=== PATIENT | female | born 1970 | race African-American/Black ===

== ENCOUNTER 2019-02-23 20:08 | Inpatient (IN) ==
[2019-02-23] MEDS ORDERED: VANCOMYCIN INJ 1,000 MG in SODIUM CHLORIDE 0.9% 250 ML IV STA (21:36)
[2019-02-23 22:43] LABS: Basophils # 0.1 10*3/uL (0.0-0.2); Basophils % 0.8 % (0.0-0.8); Eosinophils # 0.3 10*3/uL (0.0-0.87); Hematocrit 34.8 VOL% (35.7-47.0); Hemoglobin 11.2 GM/DL (12.0-16.0); Immature Granulocytes % 0.2 %; Immature Granulocytes Absolute 0.01 #; Lymphocytes % 30.4 % (21.3-54.2); Mean Corpuscular HGB Conc 32.2 GM/DL (32-36); Mean Corpuscular Volume 95.6 FL (87-102); Mean Platelet Volume 9.7 FL (9.6-12.0); Monocytes % 5.4 % (1.7-12.7); Neutrophils % 59.2 % (38.7-73.9); Platelet Count 314 T/CUMM (130-400); Red Blood Count 3.64 MC/CUMM (3.8-5.5); Red Cell Distribution Width 13.1 % (9.3-17.3); White Blood Count 6.5 T/CUMM (4-12)
[2019-02-23 22:51] LABS: INR 0.9; PT Patient Result 9.4 SECS (9.6-12.2)
[2019-02-23 23:00] LABS: Alanine Aminotransferase 29 U/L (13-56); Albumin 3.5 G/DL (3.4-5.0); Alkaline Phosphatase 139 U/L (45-117); Aspartate Amino Transferase 26 U/L (0-37); Bilirubin,Total < 0.39 MG/DL (0.2-1.0); Blood Urea Nitrogen 25 MG/DL (7-18); Calcium 9.7 MG/DL (8.5-10.1); Glucose 155 MG/DL (74-106); Osmolality,Calculated 283.5 MOS/KG (273-304); Total Protein 8.1 G/DL (6.4-8.3)
[2019-02-23] MEDS ORDERED: fentaNYL 100 MCG/2 ML VIAL IV STA (23:49)
[2019-02-23] MEDS ORDERED: ONDANSETRON 4 MG/2 ML VIAL IV STA (23:49)
[2019-02-24] MEDS ORDERED: DEXTROSE 50% 25 GM/50 ML VIAL IV PRN (00:15)
[2019-02-24] MEDS ORDERED: ONDANSETRON 4 MG/2 ML VIAL IV PRN (00:15)
[2019-02-24] MEDS ORDERED: NICOTINE 21 MG/24 HR PATCH TRANSDERM PRN (00:15)
[2019-02-24] MEDS ORDERED: ACETAMINOPHEN 325 MG TABLET PO PRN (00:15)
[2019-02-24] MEDS ORDERED: GLUCAGON 1 MG VIAL IM PRN (00:15)
[2019-02-24] MEDS ORDERED: VANCOMYCIN INJ 1,000 MG in SODIUM CHLORIDE 0.9% 250 ML IV ONE ×2 (00:30→02:30)
[2019-02-24] MEDS: SODIUM CHLORIDE 0.9% 1,000 ML IV SCH (01:30)
[2019-02-24] MEDS ORDERED: hydrALAZINE 20 MG/1 ML VIAL IV ONE (03:02)
[2019-02-24] MEDS: MORPHINE 4 MG/1 ML VIAL IV PRN ×5 (03:20→21:19)
[2019-02-24] MEDS: PIPERACILLIN/TAZOBACTAM 3,375 MG in SODIUM CHLORIDE 0.9% 100 ML IV SCH ×3 (04:15→19:33)
[2019-02-24] MEDS ORDERED: METOPROLOL TARTRATE 5 MG/5 ML VIAL IV ONE (04:44)
[2019-02-24 06:05] LABS: Basophils % 0.6 % (0.0-0.8); Eosinophils # 0.2 10*3/uL (0.0-0.87); Eosinophils % 3.1 % (0.00-10.9); Hematocrit 34.4 VOL% (35.7-47.0); Hemoglobin 11.1 GM/DL (12.0-16.0); Immature Granulocytes % 0.6 %; Immature Granulocytes Absolute 0.04 #; Lymphocytes % 29.3 % (21.3-54.2); Mean Corpuscular HGB Conc 32.3 GM/DL (32-36); Mean Corpuscular Volume 94.5 FL (87-102); Mean Platelet Volume 9.6 FL (9.6-12.0); Monocytes % 7.2 % (1.7-12.7); Neutrophils % 59.2 % (38.7-73.9); Platelet Count 380 T/CUMM (130-400); Red Blood Count 3.64 MC/CUMM (3.8-5.5); Red Cell Distribution Width 13.1 % (9.3-17.3); White Blood Count 6.7 T/CUMM (4-12)
[2019-02-24 06:24] LABS: Albumin 3.4 G/DL (3.4-5.0); Bilirubin,Total 0.4 MG/DL (0.2-1.0); Calcium 9.8 MG/DL (8.5-10.1); Osmolality,Calculated 284.5 MOS/KG (273-304)
[2019-02-24] MEDS: INSULIN REGULAR 100 UNIT/ML SUBCUT SCH ×3 (07:20→18:07)
[2019-02-24] MEDS: POTASSIUM CHLORIDE 20 MEQ TABLET PO PRN ×3 (19:33→23:44)
[2019-02-24] MEDS: METOPROLOL TARTRATE 50 MG TABLET PO SCH (21:05)
[2019-02-25] MEDS: SODIUM CHLORIDE 0.9% 1,000 ML IV SCH ×3 (00:04→18:04)
[2019-02-25] MEDS: VANCOMYCIN INJ 1,750 MG in SODIUM CHLORIDE 0.9% 500 ML IV SCH ×2 (00:05→23:47)
[2019-02-25] MEDS: INSULIN REGULAR 100 UNIT/ML SUBCUT SCH ×4 (00:29→18:24)
[2019-02-25] MEDS: PIPERACILLIN/TAZOBACTAM 3,375 MG in SODIUM CHLORIDE 0.9% 100 ML IV SCH ×3 (04:25→21:11)
[2019-02-25] MEDS: MORPHINE 4 MG/1 ML VIAL IV PRN ×4 (04:25→21:12)
[2019-02-25] MEDS: METOPROLOL TARTRATE 50 MG TABLET PO SCH ×2 (08:34→21:12)
[2019-02-25] MEDS ORDERED: hydrALAZINE 20 MG/1 ML VIAL IV ONE (11:42)
[2019-02-25] MEDS: amLODIPine 10 MG TABLET PO SCH (11:55)
[2019-02-26] MEDS: PIPERACILLIN/TAZOBACTAM 3,375 MG in SODIUM CHLORIDE 0.9% 100 ML IV SCH ×3 (03:10→20:15)
[2019-02-26] MEDS: MORPHINE 4 MG/1 ML VIAL IV PRN ×2 (03:11→07:47)
[2019-02-26] MEDS: INSULIN REGULAR 100 UNIT/ML SUBCUT SCH ×5 (03:16→20:20)
[2019-02-26] MEDS: SODIUM CHLORIDE 0.9% 1,000 ML IV SCH ×2 (08:24→09:03)
[2019-02-26] MEDS: amLODIPine 10 MG TABLET PO SCH (08:51)
[2019-02-26] MEDS: METOPROLOL TARTRATE 50 MG TABLET PO SCH ×2 (08:52→20:18)
[2019-02-26 10:06] LABS: Calcium 9.3 MG/DL (8.5-10.1); Osmolality,Calculated 292.1 MOS/KG (273-304)
[2019-02-26] MEDS: hydrALAZINE 20 MG/1 ML VIAL IV PRN ×2 (12:20→20:18)
[2019-02-26] MEDS: hydrALAZINE 25 MG TABLET PO SCH ×2 (14:54→20:17)
[2019-02-27] MEDS: VANCOMYCIN INJ 1,750 MG in SODIUM CHLORIDE 0.9% 500 ML IV SCH (00:35)
[2019-02-27] MEDS: PIPERACILLIN/TAZOBACTAM 3,375 MG in SODIUM CHLORIDE 0.9% 100 ML IV SCH (03:33)
[2019-02-27 05:45] LABS: Calcium 8.9 MG/DL (8.5-10.1); Osmolality,Calculated 287.5 MOS/KG (273-304)
[2019-02-27 08:09] VITALS: BP 162/87
[2019-02-27 08:35] LABS: Risk Ratio 5.81
[2019-02-27] MEDS: METOPROLOL TARTRATE 50 MG TABLET PO SCH (08:51)
[2019-02-27] MEDS: hydrALAZINE 25 MG TABLET PO SCH (08:51)
[2019-02-27] MEDS: amLODIPine 10 MG TABLET PO SCH (08:51)
[2019-02-27] MEDS: INSULIN REGULAR 100 UNIT/ML SUBCUT SCH ×2 (08:52→11:34)
[2019-02-27] MEDS ORDERED: LINEZOLID 600 MG TABLET PO SCH (09:00)
[2019-02-27] MEDS ORDERED: INSULIN GLARGINE 100 UNIT/ML SUBCUT SCH ×2 (21:00)
== END 2019-02-27 11:42 | disposition home or self-care (01) | DRG 638 ==
LOC: N.ED 20:08 → N.EDINP 20:08 → SUATTDRO 02-24 00:15 → N.5E 02-24 00:49 → SUATTDRO 02-26 14:18
PROVIDERS: ADMIT Internal Medicine; ATTEND Internal Medicine

== ENCOUNTER 2019-09-14 11:35 | Inpatient (IN) ==
[2019-09-14 13:52] LABS: Basophils # 0.1 10*3/uL (0.0-0.2); Basophils % 0.6 % (0.0-0.8); Eosinophils # 0.3 10*3/uL (0.0-0.87); Eosinophils % 4.4 % (0.00-10.9); Hematocrit 33.2 VOL% (35.7-47.0); Hemoglobin 10.7 GM/DL (12.0-16.0); Immature Granulocytes % 0.3 %; Immature Granulocytes Absolute 0.02 #; Lymphocytes # 1.9 10*3/uL (1.4-4.0); Lymphocytes % 24.4 % (21.3-54.2); Mean Corpuscular HGB Conc 32.2 GM/DL (32-36); Mean Platelet Volume 9.9 FL (9.6-12.0); Monocytes % 6.9 % (1.7-12.7); Neutrophils % 63.4 % (38.7-73.9); Platelet Count 414 T/CUMM (130-400); Red Blood Count 3.65 MC/CUMM (3.8-5.5); Red Cell Distribution Width 13.2 % (9.3-17.3); White Blood Count 7.7 T/CUMM (4-12)
[2019-09-14 14:41] LABS: Alanine Aminotransferase 23 U/L (13-56); Albumin 2.4 G/DL (3.4-5.0); Alkaline Phosphatase 222 U/L (45-117); Aspartate Amino Transferase 19 U/L (0-37); Bilirubin,Total < 0.39 MG/DL (0.2-1.0); Blood Urea Nitrogen 17 MG/DL (7-18); Calcium 9.6 MG/DL (8.5-10.1); Estimated Glom Filtration Rate 38 ML/MIN; Glucose 445 MG/DL (74-106); Osmolality,Calculated 278.9 MOS/KG (273-304); Total Protein 8.2 G/DL (6.4-8.3)
[2019-09-14] MEDS ORDERED: ACETAMINOPHEN 325 MG TABLET PO PRN (16:59)
[2019-09-14] MEDS ORDERED: GLUCAGON 1 MG VIAL IM PRN (16:59)
[2019-09-14] MEDS ORDERED: ONDANSETRON 4 MG/2 ML VIAL IV PRN (16:59)
[2019-09-14] MEDS ORDERED: DEXTROSE 50% 25 GM/50 ML VIAL IV PRN (16:59)
[2019-09-14] MEDS ORDERED: DEXTROSE 10% 250 ML BAG IV PRN (16:59)
[2019-09-14] MEDS ORDERED: TOPIRAMATE 100 MG TABLET PO PRN (17:20)
[2019-09-14] MEDS: SODIUM CHLORIDE 0.9% 1,000 ML IV SCH (18:13)
[2019-09-14] MEDS: POLYETHYLENE GLYCOL POWDER 17 GM PACK PO SCH (18:13)
[2019-09-14] MEDS: PIPERACILLIN/TAZOBACTAM 3,375 MG in SODIUM CHLORIDE 0.9% 100 ML IV SCH (18:30)
[2019-09-14] MEDS: tiZANidine 4 MG TABLET PO SCH (20:41)
[2019-09-14] MEDS: AMITRIPTYLINE 75 MG TABLET PO SCH (20:41)
[2019-09-14] MEDS: hydrALAZINE 25 MG TABLET PO SCH (20:41)
[2019-09-14] MEDS: DOCUSATE SODIUM 100 MG/10 ML UDCUP PO SCH (20:42)
[2019-09-14] MEDS: METOPROLOL TARTRATE 50 MG TABLET PO SCH (20:42)
[2019-09-14] MEDS: INSULIN REGULAR 100 UNIT/ML SUBCUT SCH (20:42)
[2019-09-14] MEDS: GABAPENTIN 400 MG CAPSULE PO SCH (20:42)
[2019-09-14] MEDS: oxyCODONE ER 20 MG TABLET PO SCH (22:03)
[2019-09-14] MEDS: ZALEPLON 5 MG CAPSULE PO PRN (22:04)
[2019-09-14] MEDS: VANCOMYCIN INJ 1,500 MG in SODIUM CHLORIDE 0.9% 500 ML IV SCH (23:50)
[2019-09-15] MEDS: PIPERACILLIN/TAZOBACTAM 3,375 MG in SODIUM CHLORIDE 0.9% 100 ML IV SCH ×3 (03:42→19:02)
[2019-09-15 04:52] LABS: Basophils # 0.1 10*3/uL (0.0-0.2); Basophils % 0.7 % (0.0-0.8); Eosinophils # 0.3 10*3/uL (0.0-0.87); Eosinophils % 3.7 % (0.00-10.9); Hematocrit 33.5 VOL% (35.7-47.0); Hemoglobin 10.5 GM/DL (12.0-16.0); Immature Granulocytes % 0.8 %; Immature Granulocytes Absolute 0.06 #; Lymphocytes % 26.3 % (21.3-54.2); Mean Corpuscular HGB Conc 31.3 GM/DL (32-36); Mean Corpuscular Volume 94.6 FL (87-102); Mean Platelet Volume 9.8 FL (9.6-12.0); Monocytes % 7.9 % (1.7-12.7); Neutrophils % 60.6 % (38.7-73.9); Platelet Count 451 T/CUMM (130-400); Red Blood Count 3.54 MC/CUMM (3.8-5.5); Red Cell Distribution Width 13.2 % (9.3-17.3); White Blood Count 7.6 T/CUMM (4-12)
[2019-09-15 05:28] LABS: Albumin 2.2 G/DL (3.4-5.0); Bilirubin,Total 0.4 MG/DL (0.2-1.0); Calcium 8.9 MG/DL (8.5-10.1); Risk Ratio 5.33; Thyroid Stimulating Hormone 0.706 uIU/ml (0.358-3.74); Total Protein 7.6 G/DL (6.4-8.3); VLDL CHOLESTEROL 51.4 MG/DL
[2019-09-15] MEDS ORDERED: LIDOCAINE 1% 20 ML VIAL ONE (08:41)
[2019-09-15] MEDS ORDERED: BUPIVACAINE MPF 0.25% 30 ML VIAL ONE (08:41)
[2019-09-15] MEDS ORDERED: propofoL 200 MG/20 ML VIAL IV ONE (09:10)
[2019-09-15] MEDS ORDERED: fentaNYL 100 MCG/2 ML VIAL ONE (09:11)
[2019-09-15] MEDS ORDERED: LIDOCAINE 2% 5 ML VIAL ONE (09:11)
[2019-09-15] MEDS ORDERED: METOPROLOL TARTRATE 5 MG/5 ML VIAL IV ONE (09:11)
[2019-09-15] MEDS ORDERED: MIDAZOLAM 2 MG/2 ML VIAL ONE (09:11)
[2019-09-15] MEDS ORDERED: ONDANSETRON 4 MG/2 ML VIAL IV PRN (09:17)
[2019-09-15] MEDS ORDERED: HYDROmorphone 2 MG/1 ML VIAL ONE (09:19)
[2019-09-15] MEDS ORDERED: ONDANSETRON 4 MG/2 ML VIAL ONE (09:19)
[2019-09-15] MEDS: HYDROmorphone 2 MG/1 ML VIAL IV PRN ×4 (09:20→10:11)
[2019-09-15] MEDS: INSULIN REGULAR 100 UNIT/ML SUBCUT SCH ×4 (09:27→21:32)
[2019-09-15] MEDS: POLYETHYLENE GLYCOL POWDER 17 GM PACK PO SCH (10:37)
[2019-09-15] MEDS: GABAPENTIN 400 MG CAPSULE PO SCH ×3 (10:37→20:48)
[2019-09-15] MEDS: ROSUVASTATIN 20 MG TABLET PO SCH (10:37)
[2019-09-15] MEDS: hydrALAZINE 25 MG TABLET PO SCH ×3 (10:37→20:47)
[2019-09-15] MEDS: DOCUSATE SODIUM 100 MG/10 ML UDCUP PO SCH ×2 (10:37→20:49)
[2019-09-15] MEDS: METOPROLOL TARTRATE 50 MG TABLET PO SCH ×2 (10:37→20:51)
[2019-09-15] MEDS: oxyCODONE ER 20 MG TABLET PO SCH ×2 (10:38→20:46)
[2019-09-15] MEDS: amLODIPine 10 MG TABLET PO SCH (10:38)
[2019-09-15] MEDS: tiZANidine 4 MG TABLET PO SCH ×3 (10:39→20:48)
[2019-09-15] MEDS ORDERED: DEXTROSE 50% 25 GM/50 ML VIAL IV PRN (12:41)
[2019-09-15] MEDS: SODIUM CHLORIDE 0.9% 1,000 ML IV SCH (16:29)
[2019-09-15] MEDS: ZALEPLON 5 MG CAPSULE PO PRN (20:46)
[2019-09-15] MEDS: AMITRIPTYLINE 75 MG TABLET PO SCH (20:48)
[2019-09-16] MEDS: INSULIN GLARGINE 100 UNIT/ML SUBCUT SCH ×2 (00:24→20:51)
[2019-09-16] MEDS: VICTOZA 1.8MG SUBCUT SCH ×2 (00:25→20:51)
[2019-09-16 01:19] LABS: Apearance,Urine CLEAR (Clear); Bilirubin,Urine Negative (Negative); Blood, Urine Negative (Negative); Glucose,Urine (UA) >=500 mg/dL (Negative); Ketones,Urine Negative (Negative); Nitrite,Urine Negative (Negative); Protein,Urine 30 MG/DL; RBC,Urine 1 /HPF (0-4); Squamous Epithelial Cell,Urine Occasional /HPF (0-10); Urine Color Yellow (Yellow); Urine Urobilinogen < 2.0 EU/DL (0.2-1.0); WBC,Urine 1 /HPF (0-6)
[2019-09-16] MEDS: SODIUM CHLORIDE 0.9% 1,000 ML IV SCH ×2 (05:00→18:47)
[2019-09-16] MEDS: PIPERACILLIN/TAZOBACTAM 3,375 MG in SODIUM CHLORIDE 0.9% 100 ML IV SCH ×3 (05:00→22:30)
[2019-09-16 05:25] LABS: Basophils % 0.5 % (0.0-0.8); Eosinophils # 0.3 10*3/uL (0.0-0.87); Eosinophils % 3.6 % (0.00-10.9); Hematocrit 32.9 VOL% (35.7-47.0); Hemoglobin 10.1 GM/DL (12.0-16.0); Immature Granulocytes % 0.6 %; Immature Granulocytes Absolute 0.05 #; Lymphocytes # 1.6 10*3/uL (1.4-4.0); Lymphocytes % 19.7 % (21.3-54.2); Mean Corpuscular HGB Conc 30.7 GM/DL (32-36); Mean Corpuscular Volume 96.2 FL (87-102); Mean Platelet Volume 9.8 FL (9.6-12.0); Monocytes % 7.6 % (1.7-12.7); Platelet Count 425 T/CUMM (130-400); Red Blood Count 3.42 MC/CUMM (3.8-5.5); Red Cell Distribution Width 13.5 % (9.3-17.3); White Blood Count 8.2 T/CUMM (4-12)
[2019-09-16 05:49] LABS: Calcium 8.7 MG/DL (8.5-10.1)
[2019-09-16] MEDS: ROSUVASTATIN 20 MG TABLET PO SCH (09:08)
[2019-09-16] MEDS: DOCUSATE SODIUM 100 MG/10 ML UDCUP PO SCH ×2 (09:08→22:12)
[2019-09-16] MEDS: amLODIPine 10 MG TABLET PO SCH (09:08)
[2019-09-16] MEDS: METOPROLOL TARTRATE 50 MG TABLET PO SCH ×2 (09:08→20:50)
[2019-09-16] MEDS: INSULIN REGULAR 100 UNIT/ML SUBCUT SCH ×4 (09:08→20:54)
[2019-09-16] MEDS: GABAPENTIN 400 MG CAPSULE PO SCH ×3 (09:09→20:51)
[2019-09-16] MEDS: hydrALAZINE 25 MG TABLET PO SCH ×3 (09:09→20:50)
[2019-09-16] MEDS: oxyCODONE ER 20 MG TABLET PO SCH ×2 (09:09→20:50)
[2019-09-16] MEDS: tiZANidine 4 MG TABLET PO SCH ×3 (09:09→20:50)
[2019-09-16] MEDS: POLYETHYLENE GLYCOL POWDER 17 GM PACK PO SCH (10:34)
[2019-09-16] MEDS: ZALEPLON 5 MG CAPSULE PO PRN (20:49)
[2019-09-16] MEDS: AMITRIPTYLINE 75 MG TABLET PO SCH (20:50)
[2019-09-16] MEDS: VANCOMYCIN INJ 1,500 MG in SODIUM CHLORIDE 0.9% 500 ML IV SCH ×2 (23:30)
[2019-09-17] MEDS: PIPERACILLIN/TAZOBACTAM 3,375 MG in SODIUM CHLORIDE 0.9% 100 ML IV SCH (05:43)
[2019-09-17 06:38] LABS: Basophils # 0.1 10*3/uL (0.0-0.2); Basophils % 0.9 % (0.0-0.8); Eosinophils # 0.3 10*3/uL (0.0-0.87); Eosinophils % 4.4 % (0.00-10.9); Hemoglobin 10.1 GM/DL (12.0-16.0); Immature Granulocytes % 0.7 %; Immature Granulocytes Absolute 0.05 #; Lymphocytes # 1.9 10*3/uL (1.4-4.0); Lymphocytes % 27.7 % (21.3-54.2); Mean Corpuscular HGB Conc 30.6 GM/DL (32-36); Mean Corpuscular Volume 96.8 FL (87-102); Mean Platelet Volume 9.3 FL (9.6-12.0); Monocytes % 7.4 % (1.7-12.7); Neutrophils % 58.9 % (38.7-73.9); Platelet Count 410 T/CUMM (130-400); Red Blood Count 3.41 MC/CUMM (3.8-5.5); Red Cell Distribution Width 13.4 % (9.3-17.3); White Blood Count 6.8 T/CUMM (4-12)
[2019-09-17 06:56] LABS: Calcium 8.7 MG/DL (8.5-10.1); Osmolality,Calculated 278.7 MOS/KG (273-304)
[2019-09-17] MEDS: INSULIN REGULAR 100 UNIT/ML SUBCUT SCH ×4 (10:06→23:40)
[2019-09-17] MEDS: hydrALAZINE 25 MG TABLET PO SCH ×3 (10:07→22:12)
[2019-09-17] MEDS: ROSUVASTATIN 20 MG TABLET PO SCH (10:07)
[2019-09-17] MEDS: amLODIPine 10 MG TABLET PO SCH (10:08)
[2019-09-17] MEDS: oxyCODONE ER 20 MG TABLET PO SCH ×2 (10:08→22:13)
[2019-09-17] MEDS: GABAPENTIN 400 MG CAPSULE PO SCH ×3 (10:08→22:12)
[2019-09-17] MEDS: METOPROLOL TARTRATE 50 MG TABLET PO SCH ×2 (10:08→22:12)
[2019-09-17] MEDS: tiZANidine 4 MG TABLET PO SCH ×3 (10:09→22:12)
[2019-09-17] MEDS: POLYETHYLENE GLYCOL POWDER 17 GM PACK PO SCH (10:12)
[2019-09-17] MEDS: DOCUSATE SODIUM 100 MG/10 ML UDCUP PO SCH ×2 (10:15→22:11)
[2019-09-17] MEDS: SODIUM CHLORIDE 0.9% 1,000 ML IV SCH (10:48)
[2019-09-17] MEDS: MEROPENEM 500 MG in SODIUM CHLORIDE 0.9% 100 ML IV SCH ×3 (10:50→22:11)
[2019-09-17] MEDS: AMITRIPTYLINE 75 MG TABLET PO SCH (22:12)
[2019-09-17] MEDS: INSULIN GLARGINE 100 UNIT/ML SUBCUT SCH (22:12)
[2019-09-17] MEDS: VICTOZA 1.8MG SUBCUT SCH (22:14)
[2019-09-17] MEDS: ZALEPLON 5 MG CAPSULE PO PRN (23:39)
[2019-09-18] MEDS: MEROPENEM 500 MG in SODIUM CHLORIDE 0.9% 100 ML IV SCH ×2 (04:31→10:31)
[2019-09-18] MEDS: SODIUM CHLORIDE 0.9% 1,000 ML IV SCH (04:38)
[2019-09-18 05:22] LABS: Basophils # 0.1 10*3/uL (0.0-0.2); Basophils % 0.9 % (0.0-0.8); Eosinophils # 0.2 10*3/uL (0.0-0.87); Eosinophils % 3.4 % (0.00-10.9); Hematocrit 32.1 VOL% (35.7-47.0); Hemoglobin 10.1 GM/DL (12.0-16.0); Immature Granulocytes % 1.1 %; Immature Granulocytes Absolute 0.06 #; Lymphocytes % 19.3 % (21.3-54.2); Mean Corpuscular HGB Conc 31.5 GM/DL (32-36); Mean Corpuscular Volume 92.8 FL (87-102); Mean Platelet Volume 9.3 FL (9.6-12.0); Monocytes % 10.4 % (1.7-12.7); Neutrophils % 64.9 % (38.7-73.9); Platelet Count 405 T/CUMM (130-400); Red Blood Count 3.46 MC/CUMM (3.8-5.5); Red Cell Distribution Width 13.3 % (9.3-17.3); White Blood Count 5.3 T/CUMM (4-12)
[2019-09-18 05:41] LABS: Osmolality,Calculated 282.4 MOS/KG (273-304)
[2019-09-18] MEDS: INSULIN REGULAR 100 UNIT/ML SUBCUT SCH ×2 (10:38→14:16)
[2019-09-18] MEDS: oxyCODONE ER 20 MG TABLET PO SCH (10:40)
[2019-09-18] MEDS: METOPROLOL TARTRATE 50 MG TABLET PO SCH (10:41)
[2019-09-18] MEDS: ROSUVASTATIN 20 MG TABLET PO SCH (10:41)
[2019-09-18] MEDS: hydrALAZINE 25 MG TABLET PO SCH (10:41)
[2019-09-18] MEDS: GABAPENTIN 400 MG CAPSULE PO SCH (10:41)
[2019-09-18] MEDS: amLODIPine 10 MG TABLET PO SCH (10:41)
[2019-09-18] MEDS: DOCUSATE SODIUM 100 MG/10 ML UDCUP PO SCH (10:42)
[2019-09-18] MEDS: tiZANidine 4 MG TABLET PO SCH (10:42)
[2019-09-18] MEDS: POLYETHYLENE GLYCOL POWDER 17 GM PACK PO SCH (10:42)
[2019-09-18 11:47] VITALS: BP 128/69
== END 2019-09-18 14:25 | disposition home health service (06) | DRG 240 ==
LOC: N.ED 11:35 → N.EDINP 16:59 → N.3E 17:30
PROVIDERS: ADMIT Internal Medicine; ATTEND Internal Medicine

== ENCOUNTER 2019-09-26 19:48 | Inpatient (IN) ==
[2019-09-26] MEDS ORDERED: SODIUM CHLORIDE 0.9% 1,000 ML IV STA (20:14)
[2019-09-26] MEDS ORDERED: VANCOMYCIN INJ 1,000 MG in SODIUM CHLORIDE 0.9% 250 ML IV STA (20:24)
[2019-09-26 20:51] LABS: Basophils % 0.1 % (0.0-0.8); Hematocrit 45.1 VOL% (35.7-47.0); Hemoglobin 13.3 GM/DL (12.0-16.0); Immature Granulocytes % 0.8 %; Immature Granulocytes Absolute 0.08 #; Lymphocytes # 1.2 10*3/uL (1.4-4.0); Lymphocytes % 12.4 % (21.3-54.2); Mean Corpuscular HGB Conc 29.5 GM/DL (32-36); Mean Corpuscular Volume 98.9 FL (87-102); Mean Platelet Volume 10.2 FL (9.6-12.0); Neutrophils % 78.7 % (38.7-73.9); Platelet Count 618 T/CUMM (130-400); Red Blood Count 4.56 MC/CUMM (3.8-5.5); Red Cell Distribution Width 14.5 % (9.3-17.3); White Blood Count 9.5 T/CUMM (4-12)
[2019-09-26 21:02] LABS: INR 1.3; Partial Thromboplastin Time 31.9 SECS (23.9-33.8)
[2019-09-26] MEDS ORDERED: INSULIN REGULAR 100 UNIT/ML IV ONE ×2 (21:03→22:43)
[2019-09-26 21:18] LABS: Alanine Aminotransferase 24 U/L (13-56); Albumin 2.6 G/DL (3.4-5.0); Alkaline Phosphatase 243 U/L (45-117); Aspartate Amino Transferase 15 U/L (0-37); Blood Urea Nitrogen 62 MG/DL (7-18); Calcium 9.9 MG/DL (8.5-10.1); Estimated Glom Filtration Rate 21 ML/MIN; Ferritin 665.3 ng/ml (8-252); Osmolality,Calculated 346.8 MOS/KG (273-304); Total Protein 9.1 G/DL (6.4-8.3); Troponin I 0.029 NG/ML (0.00-0.045)
[2019-09-26 21:24] LABS: Glucose 864 MG/DL (74-106)
[2019-09-26] MEDS ORDERED: SODIUM CHLORIDE 0.9% 2,000 ML IV STA (21:24)
[2019-09-26 21:27] LABS: Apearance,Urine Slightly Hazy (Clear); Bilirubin,Urine Negative (Negative); Blood, Urine Moderate mg/dL (Negative); Glucose,Urine (UA) >=500 mg/dL (Negative); Ketones,Urine 20 mg/dL (Negative); Nitrite,Urine Negative (Negative); Protein,Urine >=500 MG/DL; RBC,Urine 3 /HPF (0-4); Squamous Epithelial Cell,Urine Occasional /HPF (0-10); Urine Color Yellow (Yellow); Urine Specific Gravity 1.024 (1.001-1.035); Urine Urobilinogen < 2.0 EU/DL (0.2-1.0); WBC,Urine 2 /HPF (0-6)
[2019-09-26 21:42] LABS: Barbiturates Screen,Urine Negative (Negative); Benzodiazepines Screen,Urine Negative (Negative); Cannabinoid Screen,Urine Negative (Negative); Opiate Screen,Urine Negative (Negative); Phencyclidine Screen,Urine Negative (Negative)
[2019-09-26] MEDS ORDERED: AZITHROMYCIN INJ 500 MG in SODIUM CHLORIDE 0.9% 250 ML IV STA (22:05)
[2019-09-27] MEDS ORDERED: DEXTROSE 50% 25 GM/50 ML SYRINGE IV PRN ×2 (00:26)
[2019-09-27] MEDS ORDERED: MAGNESIUM SULF RIDER 2 GM in PREMIX 1 EACH IV PRN (00:26)
[2019-09-27] MEDS ORDERED: SODIUM CHLORIDE 0.9% IV PRN (00:26)
[2019-09-27] MEDS ORDERED: SODIUM PHOSPHATE IV PRN (00:26)
[2019-09-27] MEDS ORDERED: SODIUM BICARB INJ 100 MEQ in STERILE WATER INJ 400 ML IV PRN (00:26)
[2019-09-27] MEDS ORDERED: MAGNESIUM SULF RIDER 4 GM in PREMIX 1 EACH IV PRN (00:26)
[2019-09-27] MEDS ORDERED: INSULIN REGULAR DRIP 100 ML IV SCH (00:30)
[2019-09-27] MEDS ORDERED: SODIUM CHLORIDE 0.9% 1,000 ML IV SCH (01:00)
[2019-09-27 01:14] LABS: Allen Test Positive
[2019-09-27 01:15] LABS: ABG Base Excess 2.3 MMOL/L (-2.5-2.5); ABG HCO3 26.4 MMOL/L (20-26); ABG Oxygen Saturation 93.1 % (95-100); ABG PO2 70.2 MM HG (80-95); ABG TCO2 25.4 MMOL/L (23-27)
[2019-09-27] MEDS: ENOXAPARIN 30 MG/0.3 ML SYRINGE SUBCUT SCH (02:00)
[2019-09-27] MEDS: cefTRIAXone 1,000 MG in SODIUM CHLORIDE 0.9% 100 ML IV SCH (02:26)
[2019-09-27] MEDS: SODIUM CHLORIDE 0.45% 1,000 ML IV SCH ×2 (05:15→14:00)
[2019-09-27] MEDS: hydrALAZINE 20 MG/1 ML VIAL IV PRN ×3 (06:38→13:08)
[2019-09-27 06:41] LABS: Basophils % 0.1 % (0.0-0.8); Hematocrit 40.1 VOL% (35.7-47.0); Hemoglobin 11.9 GM/DL (12.0-16.0); Immature Granulocytes % 0.6 %; Immature Granulocytes Absolute 0.07 #; Lymphocytes # 1.6 10*3/uL (1.4-4.0); Lymphocytes % 14.6 % (21.3-54.2); Mean Corpuscular HGB Conc 29.7 GM/DL (32-36); Mean Corpuscular Volume 99.8 FL (87-102); Mean Platelet Volume 9.7 FL (9.6-12.0); Monocytes % 6.8 % (1.7-12.7); Neutrophils % 77.9 % (38.7-73.9); Platelet Count 566 T/CUMM (130-400); Red Blood Count 4.02 MC/CUMM (3.8-5.5); Red Cell Distribution Width 14.5 % (9.3-17.3); White Blood Count 11.1 T/CUMM (4-12)
[2019-09-27 07:08] LABS: Calcium 8.7 MG/DL (8.5-10.1)
[2019-09-27] MEDS: ZINC SULFATE 220 MG CAPSULE PO SCH (08:10)
[2019-09-27] MEDS: HYDROXYCHLOROQUINE 200 MG TABLET PO SCH ×2 (08:10→21:25)
[2019-09-27] MEDS: amLODIPine 10 MG TABLET PO SCH (08:52)
[2019-09-27] MEDS: METOPROLOL TARTRATE 50 MG TABLET PO SCH ×2 (08:52→21:25)
[2019-09-27] MEDS ORDERED: INSULIN GLARGINE 100 UNIT/ML SUBCUT SCH (09:00)
[2019-09-27] MEDS: INSULIN REGULAR 100 UNIT/ML SUBCUT SCH ×3 (12:46→22:00)
[2019-09-27 13:24] LABS: Calcium 7.9 MG/DL (8.5-10.1); Osmolality,Calculated 325.6 MOS/KG (273-304)
[2019-09-27] MEDS: hydrALAZINE 25 MG TABLET PO SCH ×2 (14:04→21:25)
[2019-09-27] MEDS ORDERED: hydrALAZINE 25 MG TABLET PO SCH (15:16)
[2019-09-27] MEDS: Liraglutide [Victoza 3-Pak] 1.8 MG SUBCUT SCH (20:00)
[2019-09-27] MEDS ORDERED: AZITHROMYCIN INJ 500 MG in SODIUM CHLORIDE 0.9% 250 ML IV SCH (21:00)
[2019-09-27] MEDS: AMITRIPTYLINE 25 MG TABLET PO SCH (21:25)
[2019-09-27] MEDS: ZALEPLON 5 MG CAPSULE PO SCH (21:25)
[2019-09-27] MEDS: AZITHROMYCIN 250 MG TABLET PO SCH (21:25)
[2019-09-27] MEDS: oxyCODONE ER 20 MG TABLET PO SCH (21:25)
[2019-09-28] MEDS: ENOXAPARIN 30 MG/0.3 ML SYRINGE SUBCUT SCH (01:30)
[2019-09-28] MEDS: SODIUM CHLORIDE 0.45% 1,000 ML IV SCH ×2 (03:58→15:05)
[2019-09-28] MEDS: cefTRIAXone 1,000 MG in SODIUM CHLORIDE 0.9% 100 ML IV SCH (04:54)
[2019-09-28] MEDS: INSULIN REGULAR 100 UNIT/ML SUBCUT SCH ×4 (08:50→21:48)
[2019-09-28] MEDS: oxyCODONE ER 20 MG TABLET PO SCH ×2 (09:31→21:25)
[2019-09-28] MEDS: POLYETHYLENE GLYCOL POWDER 17 GM PACK PO SCH (09:31)
[2019-09-28] MEDS: ROSUVASTATIN 20 MG TABLET PO SCH (09:31)
[2019-09-28] MEDS: amLODIPine 10 MG TABLET PO SCH (09:32)
[2019-09-28] MEDS: hydrALAZINE 25 MG TABLET PO SCH ×3 (09:32→21:25)
[2019-09-28] MEDS: METOPROLOL TARTRATE 50 MG TABLET PO SCH ×2 (09:33→21:25)
[2019-09-28] MEDS: TOPIRAMATE 100 MG TABLET PO PRN (09:33)
[2019-09-28] MEDS: HYDROXYCHLOROQUINE 200 MG TABLET PO SCH ×2 (09:33→21:25)
[2019-09-28] MEDS: FUROSEMIDE 40 MG TABLET PO SCH (09:33)
[2019-09-28 13:24] LABS: Apearance,Urine CLEAR (Clear); Bacteria,Urine Occasional /HPF (Few); Bilirubin,Urine Negative (Negative); Blood, Urine Negative (Negative); Glucose,Urine (UA) >=500 mg/dL (Negative); Ketones,Urine 5 mg/dL (Negative); Mucus,Urine Occasional /LPF (Occasional); Nitrite,Urine Negative (Negative); Protein,Urine 100 MG/DL; RBC,Urine 2 /HPF (0-4); Urine Color Yellow (Yellow); Urine Specific Gravity 1.013 (1.001-1.035); Urine Urobilinogen < 2.0 EU/DL (0.2-1.0); WBC,Urine 15 /HPF (0-6)
[2019-09-28] MEDS: ZALEPLON 5 MG CAPSULE PO SCH (21:25)
[2019-09-28] MEDS: AMITRIPTYLINE 25 MG TABLET PO SCH (21:25)
[2019-09-28] MEDS: AZITHROMYCIN 250 MG TABLET PO SCH (21:25)
[2019-09-28] MEDS: INSULIN GLARGINE 100 UNIT/ML SUBCUT SCH (21:48)
[2019-09-28] MEDS: Liraglutide [Victoza 3-Pak] 1.8 MG SUBCUT SCH (21:49)
[2019-09-29] MEDS: cefTRIAXone 1,000 MG in SODIUM CHLORIDE 0.9% 100 ML IV SCH (02:12)
[2019-09-29] MEDS: ENOXAPARIN 30 MG/0.3 ML SYRINGE SUBCUT SCH ×2 (04:30→23:34)
[2019-09-29 05:16] LABS: Basophils % 0.2 % (0.0-0.8); Eosinophils # 0.1 10*3/uL (0.0-0.87); Eosinophils % 1.7 % (0.00-10.9); Hematocrit 33.1 VOL% (35.7-47.0); Hemoglobin 9.7 GM/DL (12.0-16.0); Immature Granulocytes % 1.2 %; Lymphocytes # 1.8 10*3/uL (1.4-4.0); Lymphocytes % 20.9 % (21.3-54.2); Mean Corpuscular HGB Conc 29.3 GM/DL (32-36); Mean Corpuscular Volume 100.3 FL (87-102); Mean Platelet Volume 9.9 FL (9.6-12.0); Monocytes % 4.7 % (1.7-12.7); Neutrophils % 71.3 % (38.7-73.9); Platelet Count 397 T/CUMM (130-400); Red Cell Distribution Width 14.8 % (9.3-17.3); White Blood Count 8.4 T/CUMM (4-12)
[2019-09-29] MEDS: SODIUM CHLORIDE 0.45% 1,000 ML IV SCH ×3 (05:21→23:34)
[2019-09-29 05:39] LABS: Albumin 1.6 G/DL (3.4-5.0); Bilirubin,Total 0.7 MG/DL (0.2-1.0); Calcium 8.1 MG/DL (8.5-10.1); Osmolality,Calculated 309.9 MOS/KG (273-304); Total Protein 6.5 G/DL (6.4-8.3)
[2019-09-29] MEDS: ROSUVASTATIN 20 MG TABLET PO SCH (08:10)
[2019-09-29] MEDS: FUROSEMIDE 40 MG TABLET PO SCH (08:10)
[2019-09-29] MEDS: INSULIN REGULAR 100 UNIT/ML SUBCUT SCH ×4 (08:10→20:16)
[2019-09-29] MEDS: hydrALAZINE 25 MG TABLET PO SCH ×3 (08:10→20:13)
[2019-09-29] MEDS: METOPROLOL TARTRATE 50 MG TABLET PO SCH ×2 (08:10→20:16)
[2019-09-29] MEDS: POLYETHYLENE GLYCOL POWDER 17 GM PACK PO SCH (08:11)
[2019-09-29] MEDS: oxyCODONE ER 20 MG TABLET PO SCH (08:11)
[2019-09-29] MEDS: ZINC SULFATE 220 MG CAPSULE PO SCH (08:11)
[2019-09-29] MEDS: amLODIPine 10 MG TABLET PO SCH (08:11)
[2019-09-29] MEDS: HYDROXYCHLOROQUINE 200 MG TABLET PO SCH ×2 (08:12→20:16)
[2019-09-29] MEDS: TOPIRAMATE 100 MG TABLET PO PRN (16:16)
[2019-09-29] MEDS: AMITRIPTYLINE 25 MG TABLET PO SCH (20:13)
[2019-09-29] MEDS: Liraglutide [Victoza 3-Pak] 1.8 MG SUBCUT SCH (20:16)
[2019-09-29] MEDS: AZITHROMYCIN 250 MG TABLET PO SCH (20:16)
[2019-09-29] MEDS: INSULIN GLARGINE 100 UNIT/ML SUBCUT SCH (20:16)
[2019-09-29] MEDS: ZALEPLON 5 MG CAPSULE PO SCH (20:16)
[2019-09-29 22:43] LABS: ABG Base Excess 1.5 MMOL/L (-2.5-2.5); ABG HCO3 25.7 MMOL/L (20-26); ABG Oxygen Saturation 94.6 % (95-100); ABG PCO2 37.4 MM HG (35-48); ABG PH 7.441 (7.35-7.45); ABG PO2 70.2 MM HG (80-95); ABG TCO2 21.9 MMOL/L (23-27); Allen Test Positive; Pt O2 Delivery Device Other
[2019-09-30] MEDS: cefTRIAXone 1,000 MG in SODIUM CHLORIDE 0.9% 100 ML IV SCH (00:07)
[2019-09-30] MEDS: SODIUM CHLORIDE 0.45% 1,000 ML IV SCH ×3 (01:31→15:21)
[2019-09-30] MEDS: hydrALAZINE 20 MG/1 ML VIAL IV PRN (04:21)
[2019-09-30 04:58] LABS: ABG Base Excess -0.8 MMOL/L (-2.5-2.5); ABG HCO3 21.6 MMOL/L (20-26); ABG Oxygen Saturation 89.1 % (95-100); ABG PCO2 29.2 MM HG (35-48); ABG PH 7.487 (7.35-7.45); ABG PO2 54.1 MM HG (80-95); ABG TCO2 22.5 MMOL/L (23-27); Allen Test Positive; Pt O2 Delivery Device Other
[2019-09-30 05:59] LABS: Basophils % 0.2 % (0.0-0.8); Eosinophils # 0.1 10*3/uL (0.0-0.87); Eosinophils % 0.8 % (0.00-10.9); Hematocrit 32.7 VOL% (35.7-47.0); Immature Granulocytes % 1.7 %; Lymphocytes # 1.3 10*3/uL (1.4-4.0); Lymphocytes % 11.3 % (21.3-54.2); Mean Corpuscular HGB Conc 30.6 GM/DL (32-36); Mean Corpuscular Volume 96.5 FL (87-102); Monocytes % 5.3 % (1.7-12.7); NRBC # 0.03 10*3/uL; Neutrophils % 80.7 % (38.7-73.9); Platelet Count 307 T/CUMM (130-400); Red Blood Count 3.39 MC/CUMM (3.8-5.5); Red Cell Distribution Width 14.3 % (9.3-17.3); White Blood Count 11.6 T/CUMM (4-12)
[2019-09-30 06:33] LABS: Albumin 1.5 G/DL (3.4-5.0); Bilirubin,Total 1.3 MG/DL (0.2-1.0); Calcium 8.4 MG/DL (8.5-10.1); Osmolality,Calculated 299.4 MOS/KG (273-304); Total Protein 6.7 G/DL (6.4-8.3)
[2019-09-30 07:37] LABS: Lymphocytes 9 % (20-55); Platelet Estimate Normal; Polychromasia Slight; Reactive Lymphocytes Few; Segmented Neutrophils 89 % (50-85); Total Cells Counted 100
[2019-09-30] MEDS: INSULIN REGULAR 100 UNIT/ML SUBCUT SCH ×4 (07:50→23:28)
[2019-09-30] MEDS: amLODIPine 10 MG TABLET PO SCH (08:24)
[2019-09-30] MEDS: METOPROLOL TARTRATE 50 MG TABLET PO SCH ×2 (08:24→20:41)
[2019-09-30] MEDS: ROSUVASTATIN 20 MG TABLET PO SCH (08:24)
[2019-09-30] MEDS: hydrALAZINE 25 MG TABLET PO SCH ×3 (08:24→20:40)
[2019-09-30] MEDS: HYDROXYCHLOROQUINE 200 MG TABLET PO SCH ×2 (08:24→20:41)
[2019-09-30] MEDS: FUROSEMIDE 40 MG TABLET PO SCH (08:25)
[2019-09-30] MEDS: LORazepam 1 MG TABLET PO PRN (08:27)
[2019-09-30] MEDS: POLYETHYLENE GLYCOL POWDER 17 GM PACK PO SCH (08:29)
[2019-09-30] MEDS: POTASSIUM CHLORIDE RIDER 10 MEQ in PREMIX 1 EACH IV PRN ×3 (08:55→12:23)
[2019-09-30] MEDS ORDERED: ROCURONIUM 100 MG/10 ML VIAL IV ONE ×2 (09:35→09:59)
[2019-09-30] MEDS ORDERED: VECURONIUM 10 MG VIAL IV ONE (09:58)
[2019-09-30] MEDS ORDERED: ETOMIDATE 20 MG/10 ML VIAL IV ONE (09:58)
[2019-09-30 11:00] LABS: ABG Base Excess -4.6 MMOL/L (-2.5-2.5); ABG HCO3 20.6 MMOL/L (20-26); ABG Oxygen Saturation 97.3 % (95-100); ABG PCO2 54.7 MM HG (35-48); ABG TCO2 21.6 MMOL/L (23-27); Allen Test Positive; Pt O2 Delivery Device Ventilator
[2019-09-30] MEDS: fentaNYL INJ 1,250 MCG in SODIUM CHLORIDE 0.9% 225 ML IV PRN ×2 (13:05→21:13)
[2019-09-30] MEDS: AMITRIPTYLINE 25 MG TABLET PO SCH (20:41)
[2019-09-30] MEDS: AZITHROMYCIN 250 MG TABLET PO SCH (20:41)
[2019-09-30] MEDS: ZALEPLON 5 MG CAPSULE PO SCH (20:41)
[2019-09-30] MEDS: INSULIN GLARGINE 100 UNIT/ML SUBCUT SCH (20:42)
[2019-09-30] MEDS: Liraglutide [Victoza 3-Pak] 1.8 MG SUBCUT SCH (20:42)
[2019-09-30] MEDS: ENOXAPARIN 30 MG/0.3 ML SYRINGE SUBCUT SCH (23:48)
[2019-10-01] MEDS: cefTRIAXone 1,000 MG in SODIUM CHLORIDE 0.9% 100 ML IV SCH (00:54)
[2019-10-01] MEDS: fentaNYL INJ 1,250 MCG in SODIUM CHLORIDE 0.9% 225 ML IV PRN ×4 (03:05→22:08)
[2019-10-01 05:29] LABS: Allen Test Positive; Pt O2 Delivery Device Ventilator
[2019-10-01 05:30] LABS: ABG Base Excess -3.2 MMOL/L (-2.5-2.5); ABG HCO3 21.5 MMOL/L (20-26); ABG Oxygen Saturation 76.8 % (95-100); ABG PCO2 51.3 MM HG (35-48); ABG PH 7.276 (7.35-7.45); ABG PO2 46.6 MM HG (80-95); ABG TCO2 22.4 MMOL/L (23-27)
[2019-10-01] MEDS: SODIUM CHLORIDE 0.45% 1,000 ML IV SCH ×3 (05:34→18:28)
[2019-10-01] MEDS: INSULIN REGULAR 100 UNIT/ML SUBCUT SCH ×4 (06:04→23:23)
[2019-10-01 06:56] LABS: Basophils % 0.3 % (0.0-0.8); Eosinophils # 0.4 10*3/uL (0.0-0.87); Eosinophils % 2.9 % (0.00-10.9); Hematocrit 30.5 VOL% (35.7-47.0); Immature Granulocytes % 2.4 %; Lymphocytes # 1.4 10*3/uL (1.4-4.0); Lymphocytes % 11.5 % (21.3-54.2); Mean Corpuscular HGB Conc 29.5 GM/DL (32-36); Mean Corpuscular Volume 100.3 FL (87-102); Mean Platelet Volume 10.7 FL (9.6-12.0); Monocytes % 5.9 % (1.7-12.7); NRBC # 0.02 10*3/uL; Platelet Count 224 T/CUMM (130-400); Red Blood Count 3.04 MC/CUMM (3.8-5.5); Red Cell Distribution Width 14.8 % (9.3-17.3); White Blood Count 12.4 T/CUMM (4-12)
[2019-10-01 07:17] LABS: Osmolality,Calculated 298.7 MOS/KG (273-304)
[2019-10-01 07:23] LABS: Band Neutrophils 1 % (0-10); Eosinophils 5 % (0-10); Hypochromasia 1+; Lymphocytes 11 % (20-55); Microcytosis 1+; Platelet Estimate Adequate; Segmented Neutrophils 75 % (50-85); Total Cells Counted 100
[2019-10-01] MEDS: PANTOPRAZOLE 40 MG VIAL IV SCH (08:23)
[2019-10-01] MEDS: HYDROXYCHLOROQUINE 200 MG TABLET PO SCH ×2 (08:24→20:17)
[2019-10-01] MEDS: ZINC SULFATE 220 MG CAPSULE PO SCH (08:24)
[2019-10-01] MEDS: LORazepam 1 MG TABLET PO PRN (08:24)
[2019-10-01] MEDS: amLODIPine 10 MG TABLET PO SCH (08:24)
[2019-10-01] MEDS: ROSUVASTATIN 20 MG TABLET PO SCH (08:24)
[2019-10-01] MEDS: hydrALAZINE 25 MG TABLET PO SCH ×3 (08:24→20:16)
[2019-10-01] MEDS: METOPROLOL TARTRATE 50 MG TABLET PO SCH ×2 (08:24→20:17)
[2019-10-01] MEDS: ERGOCALCIFEROL 50,000 UNIT CAPSULE PO SCH (08:24)
[2019-10-01] MEDS: FUROSEMIDE 40 MG TABLET PO SCH (08:24)
[2019-10-01] MEDS: POLYETHYLENE GLYCOL POWDER 17 GM PACK PO SCH (08:27)
[2019-10-01] MEDS: ENOXAPARIN 120 MG/0.8 ML SYRINGE SUBCUT SCH (13:10)
[2019-10-01] MEDS ORDERED: GLUCAGON 1 MG VIAL IM PRN (14:26)
[2019-10-01] MEDS: AMITRIPTYLINE 25 MG TABLET PO SCH (20:16)
[2019-10-01] MEDS: INSULIN GLARGINE 100 UNIT/ML SUBCUT SCH (20:16)
[2019-10-01] MEDS: Liraglutide [Victoza 3-Pak] 1.8 MG SUBCUT SCH (20:17)
[2019-10-01] MEDS: ZALEPLON 5 MG CAPSULE PO SCH (20:17)
[2019-10-01 21:38] LABS: ABG Base Excess -5.7 MMOL/L (-2.5-2.5); ABG HCO3 19.5 MMOL/L (20-26); ABG Oxygen Saturation 88.4 % (95-100); ABG PCO2 47.1 MM HG (35-48); ABG PH 7.261 (7.35-7.45); ABG PO2 59.3 MM HG (80-95); Allen Test Positive; Pt O2 Delivery Device Ventilator
[2019-10-01] MEDS: ROCURONIUM 500 MG in SODIUM CHLORIDE 0.9% 500 ML IV PRN (23:20)
[2019-10-02] MEDS: cefTRIAXone 1,000 MG in SODIUM CHLORIDE 0.9% 100 ML IV SCH (00:27)
[2019-10-02] MEDS: fentaNYL INJ 1,250 MCG in SODIUM CHLORIDE 0.9% 225 ML IV PRN ×4 (01:23→12:02)
[2019-10-02 04:19] LABS: Allen Test Positive; Pt O2 Delivery Device Ventilator
[2019-10-02 04:23] LABS: ABG HCO3 18.7 MMOL/L (20-26); ABG Oxygen Saturation 99.5 % (95-100); ABG PCO2 43.8 MM HG (35-48); ABG TCO2 18.9 MMOL/L (23-27)
[2019-10-02] MEDS: INSULIN REGULAR 100 UNIT/ML SUBCUT SCH ×4 (06:27→23:40)
[2019-10-02 07:00] LABS: Calcium 7.7 MG/DL (8.5-10.1); Osmolality,Calculated 290.1 MOS/KG (273-304)
[2019-10-02 07:08] LABS: Basophils % 0.1 % (0.0-0.8); Eosinophils # 0.3 10*3/uL (0.0-0.87); Eosinophils % 2.9 % (0.00-10.9); Hematocrit 24.7 VOL% (35.7-47.0); Immature Granulocytes % 1.8 %; Immature Granulocytes Absolute 0.19 #; Lymphocytes # 1.2 10*3/uL (1.4-4.0); Lymphocytes % 11.7 % (21.3-54.2); Mean Corpuscular HGB Conc 31.6 GM/DL (32-36); Mean Corpuscular Volume 96.1 FL (87-102); Mean Platelet Volume 11.3 FL (9.6-12.0); Monocytes % 7.3 % (1.7-12.7); NRBC # 0.04 10*3/uL; Neutrophils % 76.2 % (38.7-73.9); Red Blood Count 2.57 MC/CUMM (3.8-5.5); Red Cell Distribution Width 14.6 % (9.3-17.3); White Blood Count 10.6 T/CUMM (4-12)
[2019-10-02 07:10] LABS: Hemoglobin 7.8 GM/DL (12.0-16.0)
[2019-10-02 07:11] LABS: Platelet Count 167 T/CUMM (130-400)
[2019-10-02 07:14] LABS: Hypochromasia 1+; Microcytosis Slight
[2019-10-02] MEDS: ROCURONIUM 500 MG in SODIUM CHLORIDE 0.9% 500 ML IV PRN ×2 (08:07→18:15)
[2019-10-02] MEDS: METOPROLOL TARTRATE 50 MG TABLET PO SCH ×2 (08:12→20:14)
[2019-10-02] MEDS: ROSUVASTATIN 20 MG TABLET PO SCH (08:12)
[2019-10-02] MEDS: POLYETHYLENE GLYCOL POWDER 17 GM PACK PO SCH (08:12)
[2019-10-02] MEDS: hydrALAZINE 25 MG TABLET PO SCH ×3 (08:12→20:13)
[2019-10-02] MEDS: PANTOPRAZOLE 40 MG VIAL IV SCH (08:12)
[2019-10-02] MEDS: LORazepam 1 MG TABLET PO PRN (08:12)
[2019-10-02] MEDS: amLODIPine 10 MG TABLET PO SCH (08:12)
[2019-10-02] MEDS: FUROSEMIDE 40 MG TABLET PO SCH (08:12)
[2019-10-02] MEDS: MULTIVITAMIN LIQUID (CENTRUM) 60 ML BOTTLE PO SCH (08:17)
[2019-10-02] MEDS ORDERED: SODIUM CHLORIDE 0.9% 1,000 ML IV PRN ×2 (10:32→13:39)
[2019-10-02] MEDS: SODIUM CHLORIDE 0.45% 1,000 ML IV SCH (11:21)
[2019-10-02] MEDS: ENOXAPARIN 120 MG/0.8 ML SYRINGE SUBCUT SCH (15:05)
[2019-10-02] MEDS: fentaNYL INJ 2,500 MCG in SODIUM CHLORIDE 0.9% 200 ML IV PRN ×2 (16:00→23:32)
[2019-10-02] MEDS: SODIUM BICARB INJ 150 MEQ in STERILE WATER INJ 850 ML IV SCH (17:51)
[2019-10-02 19:01] LABS: Hematocrit 26.7 VOL% (35.7-47.0); Hemoglobin 8.2 GM/DL (12.0-16.0)
[2019-10-02] MEDS: INSULIN GLARGINE 100 UNIT/ML SUBCUT SCH (20:13)
[2019-10-02] MEDS: AMITRIPTYLINE 25 MG TABLET PO SCH (20:13)
[2019-10-02] MEDS: Liraglutide [Victoza 3-Pak] 1.8 MG SUBCUT SCH (20:14)
[2019-10-02] MEDS: ZALEPLON 5 MG CAPSULE PO SCH (20:14)
[2019-10-02] MEDS: cefTRIAXone 1,000 MG in SYRINGE 1 EACH IV SCH (23:26)
[2019-10-03 04:17] LABS: ABG HCO3 17.2 MMOL/L (20-26); ABG Oxygen Saturation 98.3 % (95-100); ABG PCO2 47.1 MM HG (35-48); ABG TCO2 17.5 MMOL/L (23-27); Allen Test Positive; Pt O2 Delivery Device Ventilator
[2019-10-03 04:19] LABS: ABG PH 7.209 (7.35-7.45)
[2019-10-03 05:23] LABS: Basophils % 0.2 % (0.0-0.8); Eosinophils # 0.2 10*3/uL (0.0-0.87); Hematocrit 24.8 VOL% (35.7-47.0); Hemoglobin 7.7 GM/DL (12.0-16.0); Immature Granulocytes % 2.5 %; Immature Granulocytes Absolute 0.29 #; Lymphocytes % 8.8 % (21.3-54.2); Mean Corpuscular Volume 98.4 FL (87-102); Mean Platelet Volume 11.7 FL (9.6-12.0); Monocytes % 7.2 % (1.7-12.7); NRBC # 0.05 10*3/uL; Neutrophils % 79.3 % (38.7-73.9); Platelet Count 187 T/CUMM (130-400); Red Blood Count 2.52 MC/CUMM (3.8-5.5); Red Cell Distribution Width 15.8 % (9.3-17.3); White Blood Count 11.8 T/CUMM (4-12)
[2019-10-03] MEDS: INSULIN REGULAR 100 UNIT/ML SUBCUT SCH ×5 (05:31→23:44)
[2019-10-03] MEDS: fentaNYL INJ 2,500 MCG in SODIUM CHLORIDE 0.9% 450 ML IV PRN ×2 (05:33→12:31)
[2019-10-03] MEDS: ROCURONIUM 500 MG in SODIUM CHLORIDE 0.9% 500 ML IV PRN (05:37)
[2019-10-03 05:39] LABS: Osmolality,Calculated 291.5 MOS/KG (273-304)
[2019-10-03] MEDS ORDERED: PANTOPRAZOLE 40 MG TABLET PO SCH (09:00)
[2019-10-03] MEDS: ROSUVASTATIN 20 MG TABLET PO SCH (09:09)
[2019-10-03] MEDS: amLODIPine 10 MG TABLET PO SCH (09:09)
[2019-10-03] MEDS: POLYETHYLENE GLYCOL POWDER 17 GM PACK PO SCH (09:10)
[2019-10-03] MEDS: MULTIVITAMIN LIQUID (CENTRUM) 60 ML BOTTLE PO SCH (09:10)
[2019-10-03] MEDS: hydrALAZINE 25 MG TABLET PO SCH ×3 (09:10→20:23)
[2019-10-03] MEDS: METOPROLOL TARTRATE 50 MG TABLET PO SCH ×2 (09:10→20:27)
[2019-10-03] MEDS: FUROSEMIDE 40 MG TABLET PO SCH (09:11)
[2019-10-03] MEDS: ENOXAPARIN 120 MG/0.8 ML SYRINGE SUBCUT SCH (12:20)
[2019-10-03] MEDS: PANTOPRAZOLE 40 MG VIAL IV SCH (12:20)
[2019-10-03] MEDS: FUROSEMIDE 100 MG/10 ML VIAL IV SCH (14:42)
[2019-10-03] MEDS: SODIUM BICARB INJ 150 MEQ in STERILE WATER INJ 850 ML IV SCH (16:11)
[2019-10-03] MEDS: fentaNYL INJ 2,500 MCG in SODIUM CHLORIDE 0.9% 200 ML IV PRN (20:00)
[2019-10-03] MEDS: INSULIN GLARGINE 100 UNIT/ML SUBCUT SCH (20:10)
[2019-10-03] MEDS: Liraglutide [Victoza 3-Pak] 1.8 MG SUBCUT SCH (20:22)
[2019-10-03] MEDS: AMITRIPTYLINE 25 MG TABLET PO SCH (20:27)
[2019-10-03] MEDS: ZALEPLON 5 MG CAPSULE PO SCH (20:28)
[2019-10-03] MEDS: cefTRIAXone 1,000 MG in SYRINGE 1 EACH IV SCH (20:28)
[2019-10-04] MEDS: SODIUM CHLORIDE 0.9% IV PRN ×2 (04:52→15:53)
[2019-10-04] MEDS: ROCURONIUM IV PRN ×2 (04:52→15:53)
[2019-10-04 05:01] LABS: ABG Base Excess -10.4 MMOL/L (-2.5-2.5); ABG HCO3 16.1 MMOL/L (20-26); ABG Oxygen Saturation 99.3 % (95-100); ABG PCO2 45.1 MM HG (35-48); ABG TCO2 16.6 MMOL/L (23-27); Allen Test Positive; Pt O2 Delivery Device Ventilator
[2019-10-04] MEDS: fentaNYL INJ 2,500 MCG in SODIUM CHLORIDE 0.9% 200 ML IV PRN ×3 (05:03→20:30)
[2019-10-04 05:07] LABS: ABG PH 7.193 (7.35-7.45)
[2019-10-04] MEDS ORDERED: SODIUM BICARBONATE 50 MEQ/50 ML VIAL IV ONE (05:13)
[2019-10-04 05:39] LABS: Basophils % 0.2 % (0.0-0.8); Eosinophils # 0.2 10*3/uL (0.0-0.87); Eosinophils % 1.3 % (0.00-10.9); Hematocrit 25.7 VOL% (35.7-47.0); Hemoglobin 7.8 GM/DL (12.0-16.0); Immature Granulocytes % 4.2 %; Immature Granulocytes Absolute 0.63 #; Lymphocytes % 6.9 % (21.3-54.2); Mean Corpuscular HGB Conc 30.4 GM/DL (32-36); Mean Corpuscular Volume 97.3 FL (87-102); Mean Platelet Volume 12.1 FL (9.6-12.0); Monocytes % 8.6 % (1.7-12.7); NRBC # 0.09 10*3/uL; Neutrophils % 78.8 % (38.7-73.9); Platelet Count 261 T/CUMM (130-400); Red Blood Count 2.64 MC/CUMM (3.8-5.5); Red Cell Distribution Width 15.9 % (9.3-17.3); White Blood Count 14.8 T/CUMM (4-12)
[2019-10-04 06:01] LABS: Hypochromasia 1+; Platelet Estimate Adequate
[2019-10-04 06:02] LABS: Microcytosis Slight
[2019-10-04 06:07] LABS: Calcium 7.4 MG/DL (8.5-10.1); Osmolality,Calculated 297.7 MOS/KG (273-304)
[2019-10-04] MEDS: INSULIN REGULAR 100 UNIT/ML SUBCUT SCH ×3 (06:29→17:55)
[2019-10-04] MEDS: POLYETHYLENE GLYCOL POWDER 17 GM PACK PO SCH (08:41)
[2019-10-04] MEDS: FUROSEMIDE 100 MG/10 ML VIAL IV SCH (08:42)
[2019-10-04] MEDS: METOPROLOL TARTRATE 50 MG TABLET PO SCH ×2 (08:42→20:03)
[2019-10-04] MEDS: ROSUVASTATIN 20 MG TABLET PO SCH (08:42)
[2019-10-04] MEDS: PANTOPRAZOLE 40 MG VIAL IV SCH (08:42)
[2019-10-04] MEDS: MULTIVITAMIN LIQUID (CENTRUM) 60 ML BOTTLE PO SCH (08:42)
[2019-10-04] MEDS: amLODIPine 10 MG TABLET PO SCH (08:43)
[2019-10-04] MEDS: hydrALAZINE 25 MG TABLET PO SCH ×3 (08:43→20:02)
[2019-10-04] MEDS: ENOXAPARIN 120 MG/0.8 ML SYRINGE SUBCUT SCH (12:24)
[2019-10-04] MEDS: SODIUM BICARB INJ 150 MEQ in STERILE WATER INJ 850 ML IV SCH (16:13)
[2019-10-04] MEDS: Liraglutide [Victoza 3-Pak] 1.8 MG SUBCUT SCH (20:02)
[2019-10-04] MEDS: AMITRIPTYLINE 25 MG TABLET PO SCH (20:03)
[2019-10-04] MEDS: ZALEPLON 5 MG CAPSULE PO SCH (20:03)
[2019-10-04] MEDS: INSULIN GLARGINE 100 UNIT/ML SUBCUT SCH (20:04)
[2019-10-04] MEDS: cefTRIAXone 1,000 MG in SYRINGE 1 EACH IV SCH (20:04)
[2019-10-05] MEDS: INSULIN REGULAR 100 UNIT/ML SUBCUT SCH ×4 (00:51→18:05)
[2019-10-05 04:15] LABS: Basophils % 0.1 % (0.0-0.8); Eosinophils % 0.2 % (0.00-10.9); Hematocrit 23.7 VOL% (35.7-47.0); Hemoglobin 7.6 GM/DL (12.0-16.0); Immature Granulocytes % 5.9 %; Immature Granulocytes Absolute 0.84 #; Lymphocytes % 7.2 % (21.3-54.2); Mean Corpuscular HGB Conc 32.1 GM/DL (32-36); Mean Corpuscular Volume 92.2 FL (87-102); Mean Platelet Volume 11.9 FL (9.6-12.0); Monocytes % 4.8 % (1.7-12.7); NRBC # 0.09 10*3/uL; Neutrophils % 81.8 % (38.7-73.9); Platelet Count 279 T/CUMM (130-400); Red Blood Count 2.57 MC/CUMM (3.8-5.5); White Blood Count 14.2 T/CUMM (4-12)
[2019-10-05] MEDS: ROCURONIUM 1,000 MG in SODIUM CHLORIDE 0.9% 175 ML IV PRN ×2 (04:20→23:21)
[2019-10-05 04:24] LABS: Calcium 7.6 MG/DL (8.5-10.1); Osmolality,Calculated 300.2 MOS/KG (273-304)
[2019-10-05 05:03] LABS: ABG Base Excess -10.4 MMOL/L (-2.5-2.5); ABG HCO3 16.8 MMOL/L (20-26); ABG Oxygen Saturation 98.5 % (95-100); ABG PCO2 43.4 MM HG (35-48); ABG PO2 156.2 MM HG (80-95); ABG TCO2 18.1 MMOL/L (23-27); Allen Test Positive; Pt O2 Delivery Device Ventilator
[2019-10-05 05:05] LABS: ABG PH 7.206 (7.35-7.45)
[2019-10-05 05:21] LABS: Band Neutrophils 1 % (0-10); Lymphocytes 5 % (20-55); Myelocytes 1 %; Nucleated Red Blood Cells 2 (0-5); Segmented Neutrophils 88 % (50-85); Total Cells Counted 100
[2019-10-05 05:22] LABS: Hypochromasia 1+; Microcytosis 1+
[2019-10-05] MEDS ORDERED: SODIUM BICARBONATE 50 MEQ/50 ML VIAL IV ONE (05:28)
[2019-10-05] MEDS: fentaNYL INJ 2,500 MCG in SODIUM CHLORIDE 0.9% 75 ML IV PRN (08:50)
[2019-10-05] MEDS: amLODIPine 10 MG TABLET PO SCH (09:02)
[2019-10-05] MEDS: METOPROLOL TARTRATE 50 MG TABLET PO SCH ×2 (09:02→20:20)
[2019-10-05] MEDS: POLYETHYLENE GLYCOL POWDER 17 GM PACK PO SCH (09:02)
[2019-10-05] MEDS: ROSUVASTATIN 20 MG TABLET PO SCH (09:02)
[2019-10-05] MEDS: MULTIVITAMIN LIQUID (CENTRUM) 60 ML BOTTLE PO SCH (09:06)
[2019-10-05] MEDS: PANTOPRAZOLE 40 MG VIAL IV SCH (09:06)
[2019-10-05] MEDS: hydrALAZINE 25 MG TABLET PO SCH ×3 (09:18→20:19)
[2019-10-05] MEDS: ENOXAPARIN 120 MG/0.8 ML SYRINGE SUBCUT SCH (12:07)
[2019-10-05] MEDS: INSULIN GLARGINE 100 UNIT/ML SUBCUT SCH (20:19)
[2019-10-05] MEDS: AMITRIPTYLINE 25 MG TABLET PO SCH (20:19)
[2019-10-05] MEDS: cefTRIAXone 1,000 MG in SYRINGE 1 EACH IV SCH (20:20)
[2019-10-05] MEDS: Liraglutide [Victoza 3-Pak] 1.8 MG SUBCUT SCH (20:20)
[2019-10-06] MEDS: INSULIN REGULAR 100 UNIT/ML SUBCUT SCH ×4 (00:30→18:58)
[2019-10-06] MEDS: SODIUM BICARB INJ 150 MEQ in STERILE WATER INJ 850 ML IV SCH (01:15)
[2019-10-06 03:19] LABS: Allen Test Positive; Pt O2 Delivery Device Ventilator
[2019-10-06 03:20] LABS: ABG Base Excess -7.8 MMOL/L (-2.5-2.5); ABG HCO3 18.7 MMOL/L (20-26); ABG Oxygen Saturation 93.6 % (95-100); ABG PCO2 42.7 MM HG (35-48); ABG PH 7.259 (7.35-7.45)
[2019-10-06 04:18] LABS: Basophils # 0.1 10*3/uL (0.0-0.2); Basophils % 0.4 % (0.0-0.8); Eosinophils # 0.2 10*3/uL (0.0-0.87); Eosinophils % 1.3 % (0.00-10.9); Hematocrit 23.2 VOL% (35.7-47.0); Hemoglobin 7.4 GM/DL (12.0-16.0); Immature Granulocytes % 7.2 %; Immature Granulocytes Absolute 0.97 #; Lymphocytes # 1.2 10*3/uL (1.4-4.0); Lymphocytes % 9.1 % (21.3-54.2); Mean Corpuscular HGB Conc 31.9 GM/DL (32-36); Mean Corpuscular Volume 92.4 FL (87-102); Mean Platelet Volume 11.4 FL (9.6-12.0); Monocytes % 10.7 % (1.7-12.7); NRBC # 0.12 10*3/uL; Neutrophils % 71.3 % (38.7-73.9); Platelet Count 348 T/CUMM (130-400); Red Blood Count 2.51 MC/CUMM (3.8-5.5); Red Cell Distribution Width 15.9 % (9.3-17.3); White Blood Count 13.5 T/CUMM (4-12)
[2019-10-06 04:27] LABS: Calcium 7.7 MG/DL (8.5-10.1); Osmolality,Calculated 302.1 MOS/KG (273-304)
[2019-10-06 05:57] LABS: Band Neutrophils 1 % (0-10); Hypochromasia 1+; Lymphocytes 6 % (20-55); Microcytosis 1+; Nucleated Red Blood Cells 2 (0-5); Platelet Estimate Adequate; Segmented Neutrophils 81 % (50-85); Total Cells Counted 100
[2019-10-06] MEDS: METOPROLOL TARTRATE 50 MG TABLET PO SCH ×2 (08:19→20:26)
[2019-10-06] MEDS: amLODIPine 10 MG TABLET PO SCH (08:19)
[2019-10-06] MEDS: ROSUVASTATIN 20 MG TABLET PO SCH (08:19)
[2019-10-06] MEDS: POLYETHYLENE GLYCOL POWDER 17 GM PACK PO SCH (08:19)
[2019-10-06] MEDS: PANTOPRAZOLE 40 MG VIAL IV SCH (08:19)
[2019-10-06] MEDS: hydrALAZINE 25 MG TABLET PO SCH ×3 (08:20→20:26)
[2019-10-06] MEDS: MULTIVITAMIN LIQUID (CENTRUM) 60 ML BOTTLE PO SCH (08:20)
[2019-10-06] MEDS: fentaNYL INJ 2,500 MCG in SODIUM CHLORIDE 0.9% 75 ML IV PRN (08:26)
[2019-10-06] MEDS: ENOXAPARIN 120 MG/0.8 ML SYRINGE SUBCUT SCH (11:18)
[2019-10-06] MEDS: INSULIN GLARGINE 100 UNIT/ML SUBCUT SCH (20:25)
[2019-10-06] MEDS: cefTRIAXone 1,000 MG in SYRINGE 1 EACH IV SCH (20:25)
[2019-10-06] MEDS: AMITRIPTYLINE 25 MG TABLET PO SCH (20:25)
[2019-10-06] MEDS: Liraglutide [Victoza 3-Pak] 1.8 MG SUBCUT SCH (20:26)
[2019-10-06] MEDS: ROCURONIUM 1,000 MG in SODIUM CHLORIDE 0.9% 175 ML IV PRN (21:18)
[2019-10-07] MEDS: INSULIN REGULAR 100 UNIT/ML SUBCUT SCH ×4 (00:57→18:08)
[2019-10-07 03:54] LABS: ABG Base Excess -5.3 MMOL/L (-2.5-2.5); ABG Oxygen Saturation 94.9 % (95-100); ABG PCO2 43.7 MM HG (35-48); ABG PH 7.289 (7.35-7.45); ABG PO2 78.9 MM HG (80-95); Allen Test Positive; Pt O2 Delivery Device Ventilator
[2019-10-07 04:44] LABS: Basophils % 0.3 % (0.0-0.8); Eosinophils # 0.3 10*3/uL (0.0-0.87); Eosinophils % 1.8 % (0.00-10.9); Hemoglobin 7.3 GM/DL (12.0-16.0); Immature Granulocytes Absolute 1.09 #; Lymphocytes # 1.1 10*3/uL (1.4-4.0); Lymphocytes % 7.8 % (21.3-54.2); Mean Corpuscular HGB Conc 33.2 GM/DL (32-36); Mean Corpuscular Volume 89.8 FL (87-102); Mean Platelet Volume 11.4 FL (9.6-12.0); Monocytes % 11.2 % (1.7-12.7); NRBC # 0.11 10*3/uL; Neutrophils % 70.9 % (38.7-73.9); Platelet Count 366 T/CUMM (130-400); Red Blood Count 2.45 MC/CUMM (3.8-5.5); Red Cell Distribution Width 15.9 % (9.3-17.3); White Blood Count 13.7 T/CUMM (4-12)
[2019-10-07 05:19] LABS: Calcium 8.1 MG/DL (8.5-10.1); Osmolality,Calculated 290.4 MOS/KG (273-304)
[2019-10-07 05:33] LABS: Band Neutrophils 2 % (0-10); Eosinophils 5 % (0-10); Hypochromasia Slight; Lymphocytes 8 % (20-55); Microcytosis 1+; Platelet Estimate Adequate; Segmented Neutrophils 75 % (50-85); Total Cells Counted 100
[2019-10-07 06:30] LABS: Hepatitis B Core IgM Quant 0.06 Index; Hepatitis B Surface Ag Quant 0.31 Index; Hepatitis B Surface Ag Result Negative (Negative); Hepatitis C Virus Ab Quant < 0.02 Index; Hepatitis C Virus Ab Result Negative (Negative)
[2019-10-07] MEDS: fentaNYL INJ 2,500 MCG in SODIUM CHLORIDE 0.9% 75 ML IV PRN (06:30)
[2019-10-07] MEDS: POLYETHYLENE GLYCOL POWDER 17 GM PACK PO SCH (08:34)
[2019-10-07] MEDS: PANTOPRAZOLE 40 MG VIAL IV SCH (08:34)
[2019-10-07] MEDS: METOPROLOL TARTRATE 50 MG TABLET PO SCH (08:35)
[2019-10-07] MEDS: amLODIPine 10 MG TABLET PO SCH (08:35)
[2019-10-07] MEDS: ROSUVASTATIN 20 MG TABLET PO SCH (08:35)
[2019-10-07] MEDS: MULTIVITAMIN LIQUID (CENTRUM) 60 ML BOTTLE PO SCH (08:39)
[2019-10-07] MEDS ORDERED: METOPROLOL TARTRATE 50 MG TABLET PO ONE (11:56)
[2019-10-07] MEDS: ENOXAPARIN 120 MG/0.8 ML SYRINGE SUBCUT SCH (12:17)
[2019-10-07] MEDS: hydrALAZINE 25 MG TABLET PO SCH ×3 (12:19→20:59)
[2019-10-07] MEDS: AMITRIPTYLINE 25 MG TABLET PO SCH (20:58)
[2019-10-07] MEDS: Liraglutide [Victoza 3-Pak] 1.8 MG SUBCUT SCH (20:59)
[2019-10-07] MEDS: cefTRIAXone 1,000 MG in SYRINGE 1 EACH IV SCH (20:59)
[2019-10-07] MEDS: INSULIN GLARGINE 100 UNIT/ML SUBCUT SCH (20:59)
[2019-10-07] MEDS: METOPROLOL TARTRATE 100 MG TABLET PO SCH (20:59)
[2019-10-07] MEDS: ROCURONIUM 1,000 MG in SODIUM CHLORIDE 0.9% 175 ML IV PRN (22:33)
[2019-10-08] MEDS: INSULIN REGULAR 100 UNIT/ML SUBCUT SCH ×4 (01:09→17:56)
[2019-10-08 03:43] LABS: ABG HCO3 20.2 MMOL/L (20-26); ABG Oxygen Saturation 91.3 % (95-100); ABG PCO2 46.8 MM HG (35-48); ABG PH 7.273 (7.35-7.45); ABG PO2 66.8 MM HG (80-95); ABG TCO2 20.8 MMOL/L (23-27); Allen Test Positive; Pt O2 Delivery Device Ventilator
[2019-10-08 04:50] LABS: Basophils # 0.1 10*3/uL (0.0-0.2); Basophils % 0.4 % (0.0-0.8); Eosinophils # 0.2 10*3/uL (0.0-0.87); Eosinophils % 1.6 % (0.00-10.9); Hematocrit 20.5 VOL% (35.7-47.0); Hemoglobin 6.6 GM/DL (12.0-16.0); Immature Granulocytes % 6.2 %; Immature Granulocytes Absolute 0.87 #; Lymphocytes # 1.1 10*3/uL (1.4-4.0); Lymphocytes % 7.5 % (21.3-54.2); Mean Corpuscular HGB Conc 32.2 GM/DL (32-36); Mean Corpuscular Volume 90.3 FL (87-102); Mean Platelet Volume 11.3 FL (9.6-12.0); Monocytes % 9.7 % (1.7-12.7); NRBC # 0.11 10*3/uL; Neutrophils % 74.6 % (38.7-73.9); Platelet Count 388 T/CUMM (130-400); Red Blood Count 2.27 MC/CUMM (3.8-5.5); Red Cell Distribution Width 16.1 % (9.3-17.3)
[2019-10-08 04:59] LABS: Calcium 8.9 MG/DL (8.5-10.1); Osmolality,Calculated 295.4 MOS/KG (273-304)
[2019-10-08 05:09] LABS: Band Neutrophils 1 % (0-10); Eosinophils 3 % (0-10); Lymphocytes 11 % (20-55); Nucleated Red Blood Cells 2 (0-5); Platelet Estimate Adequate; Segmented Neutrophils 80 % (50-85); Total Cells Counted 100
[2019-10-08 05:10] LABS: Hypochromasia 2+; Microcytosis 1+
[2019-10-08] MEDS: fentaNYL INJ 2,500 MCG in SODIUM CHLORIDE 0.9% 75 ML IV PRN (07:56)
[2019-10-08] MEDS ORDERED: SODIUM CHLORIDE 0.9% 1,000 ML IV PRN (09:12)
[2019-10-08] MEDS: hydrALAZINE 25 MG TABLET PO SCH ×3 (09:18→22:10)
[2019-10-08] MEDS: amLODIPine 10 MG TABLET PO SCH (09:18)
[2019-10-08] MEDS: METOPROLOL TARTRATE 100 MG TABLET PO SCH ×2 (09:18→22:10)
[2019-10-08] MEDS: ROSUVASTATIN 20 MG TABLET PO SCH (09:18)
[2019-10-08] MEDS: POLYETHYLENE GLYCOL POWDER 17 GM PACK PO SCH (09:18)
[2019-10-08] MEDS: PANTOPRAZOLE 40 MG VIAL IV SCH (09:18)
[2019-10-08] MEDS: ERGOCALCIFEROL 50,000 UNIT CAPSULE PO SCH (09:18)
[2019-10-08] MEDS: MULTIVITAMIN LIQUID (CENTRUM) 60 ML BOTTLE PO SCH (09:24)
[2019-10-08] MEDS: ENOXAPARIN 120 MG/0.8 ML SYRINGE SUBCUT SCH (13:11)
[2019-10-08] MEDS: FUROSEMIDE 100 MG/10 ML VIAL IV SCH ×2 (13:11→22:09)
[2019-10-08 17:57] LABS: Basophils # 0.1 10*3/uL (0.0-0.2); Basophils % 0.3 % (0.0-0.8); Eosinophils # 0.4 10*3/uL (0.0-0.87); Eosinophils % 2.4 % (0.00-10.9); Hematocrit 22.2 VOL% (35.7-47.0); Hemoglobin 7.1 GM/DL (12.0-16.0); Immature Granulocytes % 6.7 %; Immature Granulocytes Absolute 1.12 #; Lymphocytes # 1.2 10*3/uL (1.4-4.0); Lymphocytes % 7.3 % (21.3-54.2); Mean Corpuscular Volume 92.5 FL (87-102); Monocytes % 8.5 % (1.7-12.7); NRBC # 0.13 10*3/uL; Neutrophils % 74.8 % (38.7-73.9); Platelet Count 403 T/CUMM (130-400); Red Cell Distribution Width 16.2 % (9.3-17.3); White Blood Count 16.8 T/CUMM (4-12)
[2019-10-08 18:23] LABS: Anisocytosis 1+; Lymphocytes 13 % (20-55); Segmented Neutrophils 79 % (50-85); Total Cells Counted 100
[2019-10-08 18:46] LABS: Hypochromasia 1+; Microcytosis 1+; Platelet Estimate Adequate
[2019-10-08] MEDS: ROCURONIUM 1,000 MG in SODIUM CHLORIDE 0.9% 175 ML IV PRN (21:22)
[2019-10-08] MEDS: INSULIN GLARGINE 100 UNIT/ML SUBCUT SCH (22:09)
[2019-10-08] MEDS: AMITRIPTYLINE 25 MG TABLET PO SCH (22:10)
[2019-10-08] MEDS: Liraglutide [Victoza 3-Pak] 1.8 MG SUBCUT SCH (22:11)
[2019-10-09] MEDS: INSULIN REGULAR 100 UNIT/ML SUBCUT SCH ×4 (00:17→18:00)
[2019-10-09 04:33] LABS: ABG Base Excess -5.5 MMOL/L (-2.5-2.5); ABG HCO3 19.9 MMOL/L (20-26); ABG Oxygen Saturation 97.7 % (95-100); ABG PCO2 46.6 MM HG (35-48); ABG PH 7.269 (7.35-7.45); Allen Test Positive; Pt O2 Delivery Device Ventilator
[2019-10-09] MEDS: FUROSEMIDE 100 MG/10 ML VIAL IV SCH ×3 (05:29→21:15)
[2019-10-09 05:31] LABS: Basophils % 0.2 % (0.0-0.8); Eosinophils # 0.5 10*3/uL (0.0-0.87); Eosinophils % 2.7 % (0.00-10.9); Hemoglobin 6.7 GM/DL (12.0-16.0); Immature Granulocytes % 5.6 %; Immature Granulocytes Absolute 1.01 #; Lymphocytes # 1.1 10*3/uL (1.4-4.0); Mean Corpuscular HGB Conc 31.9 GM/DL (32-36); Mean Corpuscular Volume 91.7 FL (87-102); Monocytes % 7.8 % (1.7-12.7); NRBC # 0.16 10*3/uL; Neutrophils % 77.7 % (38.7-73.9); Platelet Count 446 T/CUMM (130-400); Red Blood Count 2.29 MC/CUMM (3.8-5.5); Red Cell Distribution Width 16.4 % (9.3-17.3)
[2019-10-09 05:44] LABS: Calcium 9.4 MG/DL (8.5-10.1); Osmolality,Calculated 305.2 MOS/KG (273-304)
[2019-10-09 05:53] LABS: Band Neutrophils 2 % (0-10); Eosinophils 1 % (0-10); Hypochromasia 1+; Lymphocytes 8 % (20-55); Nucleated Red Blood Cells 1 (0-5); Ovalocytes Slight; Platelet Estimate Adequate; Segmented Neutrophils 82 % (50-85); Total Cells Counted 100
[2019-10-09 05:54] LABS: Microcytosis Slight
[2019-10-09] MEDS: fentaNYL INJ 2,500 MCG in SODIUM CHLORIDE 0.9% 75 ML IV PRN (06:28)
[2019-10-09] MEDS: METOPROLOL TARTRATE 100 MG TABLET PO SCH ×2 (09:30→21:12)
[2019-10-09] MEDS: amLODIPine 10 MG TABLET PO SCH (09:30)
[2019-10-09] MEDS: ROSUVASTATIN 20 MG TABLET PO SCH (09:30)
[2019-10-09] MEDS: POLYETHYLENE GLYCOL POWDER 17 GM PACK PO SCH (09:30)
[2019-10-09] MEDS: hydrALAZINE 25 MG TABLET PO SCH ×3 (09:30→21:12)
[2019-10-09] MEDS: MULTIVITAMIN LIQUID (CENTRUM) 60 ML BOTTLE PO SCH (09:30)
[2019-10-09] MEDS: PANTOPRAZOLE 40 MG VIAL IV SCH (09:30)
[2019-10-09] MEDS: ENOXAPARIN 120 MG/0.8 ML SYRINGE SUBCUT SCH (11:53)
[2019-10-09] MEDS: ROCURONIUM 1,000 MG in SODIUM CHLORIDE 0.9% 175 ML IV PRN (17:29)
[2019-10-09] MEDS ORDERED: FUROSEMIDE 20 MG/2 ML VIAL ONE (20:04)
[2019-10-09] MEDS: AMITRIPTYLINE 25 MG TABLET PO SCH (21:13)
[2019-10-09] MEDS: INSULIN GLARGINE 100 UNIT/ML SUBCUT SCH (21:14)
[2019-10-09] MEDS: Liraglutide [Victoza 3-Pak] 1.8 MG SUBCUT SCH (21:17)
[2019-10-10] MEDS: INSULIN REGULAR 100 UNIT/ML SUBCUT SCH ×4 (00:46→17:21)
[2019-10-10] MEDS: ACETAMINOPHEN 325 MG TABLET PO PRN (00:48)
[2019-10-10] MEDS: FUROSEMIDE 100 MG/10 ML VIAL IV SCH ×3 (04:05→20:26)
[2019-10-10 04:18] LABS: Basophils % 0.1 % (0.0-0.8); Eosinophils # 0.5 10*3/uL (0.0-0.87); Eosinophils % 2.5 % (0.00-10.9); Hematocrit 18.7 VOL% (35.7-47.0); Immature Granulocytes % 4.8 %; Immature Granulocytes Absolute 0.97 #; Lymphocytes # 1.3 10*3/uL (1.4-4.0); Lymphocytes % 6.2 % (21.3-54.2); Mean Corpuscular HGB Conc 31.6 GM/DL (32-36); Mean Corpuscular Volume 94.4 FL (87-102); Mean Platelet Volume 11.3 FL (9.6-12.0); Monocytes % 6.3 % (1.7-12.7); NRBC # 0.19 10*3/uL; Neutrophils % 80.1 % (38.7-73.9); Platelet Count 471 T/CUMM (130-400); Red Blood Count 1.98 MC/CUMM (3.8-5.5); Red Cell Distribution Width 16.7 % (9.3-17.3); White Blood Count 20.3 T/CUMM (4-12)
[2019-10-10 04:28] LABS: Hemoglobin 5.9 GM/DL (12.0-16.0)
[2019-10-10 04:59] LABS: ABG Base Excess -3.9 MMOL/L (-2.5-2.5); ABG Oxygen Saturation 78.2 % (95-100); ABG PCO2 55.9 MM HG (35-48); ABG PH 7.233 (7.35-7.45); ABG PO2 50.2 MM HG (80-95)
[2019-10-10 05:39] LABS: Band Neutrophils 2 % (0-10); Eosinophils 2 % (0-10); Lymphocytes 10 % (20-55); Nucleated Red Blood Cells 1 (0-5); Segmented Neutrophils 81 % (50-85); Total Cells Counted 100
[2019-10-10 05:40] LABS: Hypochromasia 2+; Microcytosis Slight; Platelet Estimate Adequate
[2019-10-10] MEDS ORDERED: SODIUM CHLORIDE 0.9% 1,000 ML IV PRN (05:48)
[2019-10-10 05:52] LABS: Albumin 1.1 G/DL (3.4-5.0); Bilirubin,Total 0.5 MG/DL (0.2-1.0); Calcium 9.2 MG/DL (8.5-10.1); Osmolality,Calculated 311.4 MOS/KG (273-304); Total Protein 7.2 G/DL (6.4-8.3)
[2019-10-10] MEDS: fentaNYL INJ 2,500 MCG in SODIUM CHLORIDE 0.9% 75 ML IV PRN (07:51)
[2019-10-10] MEDS: MULTIVITAMIN LIQUID (CENTRUM) 60 ML BOTTLE PO SCH (08:26)
[2019-10-10] MEDS: ROSUVASTATIN 20 MG TABLET PO SCH (08:26)
[2019-10-10] MEDS: PANTOPRAZOLE 40 MG VIAL IV SCH (08:26)
[2019-10-10] MEDS: METOPROLOL TARTRATE 100 MG TABLET PO SCH ×2 (08:26→20:28)
[2019-10-10] MEDS: POLYETHYLENE GLYCOL POWDER 17 GM PACK PO SCH (08:26)
[2019-10-10] MEDS: hydrALAZINE 25 MG TABLET PO SCH (09:25)
[2019-10-10] MEDS ORDERED: PHYTONADIONE 5 MG/5 ML ORAL.SYR PER TUBE ONE (10:30)
[2019-10-10] MEDS: amLODIPine 10 MG TABLET PO SCH (10:59)
[2019-10-10 13:01] LABS: INR 1.1; PT Patient Result 11.5 SECS (9.8-11.9)
[2019-10-10 16:12] LABS: Hemoglobin 8.1 GM/DL (12.0-16.0)
[2019-10-10] MEDS: ROCURONIUM 1,000 MG in SODIUM CHLORIDE 0.9% 175 ML IV PRN (17:10)
[2019-10-10 17:33] LABS: HIV Antigen/Antibody Result Nonreactive (Nonreactive); Hepatitis B Surface Ag Result Negative (Negative); Hepatitis C Virus Ab Quant 2.53 Index
[2019-10-10 17:41] LABS: Hepatitis B Surface Ag Quant < 0.10 Index
[2019-10-10] MEDS ORDERED: FUROSEMIDE 40 MG/4 ML VIAL ONE (19:58)
[2019-10-10] MEDS: INSULIN GLARGINE 100 UNIT/ML SUBCUT SCH (20:27)
[2019-10-10] MEDS: Liraglutide [Victoza 3-Pak] 1.8 MG SUBCUT SCH (20:28)
[2019-10-11] MEDS: INSULIN REGULAR 100 UNIT/ML SUBCUT SCH ×4 (00:30→17:42)
[2019-10-11 01:35] LABS: Hematocrit 24.6 VOL% (35.7-47.0); Hemoglobin 7.6 GM/DL (12.0-16.0)
[2019-10-11 03:57] LABS: ABG Base Excess -2.9 MMOL/L (-2.5-2.5); ABG HCO3 21.9 MMOL/L (20-26); ABG Oxygen Saturation 90.4 % (95-100); ABG PCO2 53.5 MM HG (35-48); ABG PH 7.268 (7.35-7.45); ABG PO2 65.3 MM HG (80-95); ABG TCO2 22.9 MMOL/L (23-27); Allen Test Positive; Pt O2 Delivery Device Ventilator
[2019-10-11] MEDS: FUROSEMIDE 100 MG/10 ML VIAL IV SCH ×3 (04:30→19:57)
[2019-10-11 05:07] LABS: Basophils # 0.1 10*3/uL (0.0-0.2); Basophils % 0.3 % (0.0-0.8); Eosinophils # 0.7 10*3/uL (0.0-0.87); Hematocrit 24.5 VOL% (35.7-47.0); Hemoglobin 7.7 GM/DL (12.0-16.0); Immature Granulocytes % 5.7 %; Immature Granulocytes Absolute 1.36 #; Lymphocytes # 1.4 10*3/uL (1.4-4.0); Mean Corpuscular HGB Conc 31.4 GM/DL (32-36); Mean Corpuscular Volume 90.7 FL (87-102); Monocytes % 5.4 % (1.7-12.7); NRBC # 0.28 10*3/uL; Neutrophils % 79.6 % (38.7-73.9); Platelet Count 517 T/CUMM (130-400); Red Cell Distribution Width 17.3 % (9.3-17.3); White Blood Count 23.8 T/CUMM (4-12)
[2019-10-11 05:28] LABS: Calcium 9.4 MG/DL (8.5-10.1); Osmolality,Calculated 321.8 MOS/KG (273-304)
[2019-10-11 05:47] LABS: Anisocytosis 1+; Eosinophils 4 % (0-10); Hypochromasia 1+; Lymphocytes 2 % (20-55); Microcytosis 1+; Myelocytes 1 %; Nucleated Red Blood Cells 2 (0-5); Segmented Neutrophils 84 % (50-85); Total Cells Counted 100
[2019-10-11] MEDS: fentaNYL INJ 2,500 MCG in SODIUM CHLORIDE 0.9% 75 ML IV PRN (06:31)
[2019-10-11] MEDS: MULTIVITAMIN LIQUID (CENTRUM) 60 ML BOTTLE PO SCH (08:25)
[2019-10-11] MEDS: PANTOPRAZOLE 40 MG VIAL IV SCH (08:25)
[2019-10-11] MEDS: ROSUVASTATIN 20 MG TABLET PO SCH (08:26)
[2019-10-11] MEDS: POLYETHYLENE GLYCOL POWDER 17 GM PACK PO SCH (08:26)
[2019-10-11] MEDS: amLODIPine 10 MG TABLET PO SCH (08:29)
[2019-10-11] MEDS: METOPROLOL TARTRATE 100 MG TABLET PO SCH ×2 (08:29→20:01)
[2019-10-11] MEDS: HEPARIN 5,000 UNIT/1 ML VIAL SUBCUT SCH ×2 (11:24→21:16)
[2019-10-11] MEDS: DESITIN 4OZ/NYSTATIN 15 GRAM MIXTURE PASTE TOP SCH ×2 (11:24→20:01)
[2019-10-11 14:20] LABS: Hematocrit 24.1 VOL% (35.7-47.0); Hemoglobin 7.5 GM/DL (12.0-16.0)
[2019-10-11] MEDS: methylPREDNISolone SOD SUC 40 MG/1 ML VIAL IV SCH (15:53)
[2019-10-11] MEDS: ROCURONIUM 1,000 MG in SODIUM CHLORIDE 0.9% 175 ML IV PRN (18:00)
[2019-10-11] MEDS ORDERED: FUROSEMIDE 20 MG/2 ML VIAL ONE (19:37)
[2019-10-11] MEDS: INSULIN GLARGINE 100 UNIT/ML SUBCUT SCH (20:00)
[2019-10-11] MEDS: Liraglutide [Victoza 3-Pak] 1.8 MG SUBCUT SCH (20:00)
[2019-10-12] MEDS: INSULIN REGULAR 100 UNIT/ML SUBCUT SCH ×4 (00:31→17:42)
[2019-10-12] MEDS ORDERED: FUROSEMIDE 40 MG/4 ML VIAL ONE (02:54)
[2019-10-12] MEDS: FUROSEMIDE 100 MG/10 ML VIAL IV SCH ×3 (03:00→21:02)
[2019-10-12] MEDS: methylPREDNISolone SOD SUC 40 MG/1 ML VIAL IV SCH ×2 (03:00→14:34)
[2019-10-12 03:42] LABS: Basophils # 0.1 10*3/uL (0.0-0.2); Basophils % 0.2 % (0.0-0.8); Eosinophils # 0.8 10*3/uL (0.0-0.87); Eosinophils % 2.8 % (0.00-10.9); Hematocrit 23.8 VOL% (35.7-47.0); Hemoglobin 7.4 GM/DL (12.0-16.0); Immature Granulocytes % 4.6 %; Immature Granulocytes Absolute 1.22 #; Lymphocytes # 1.4 10*3/uL (1.4-4.0); Lymphocytes % 5.3 % (21.3-54.2); Mean Corpuscular HGB Conc 31.1 GM/DL (32-36); Mean Corpuscular Volume 91.9 FL (87-102); Mean Platelet Volume 10.8 FL (9.6-12.0); Monocytes % 3.2 % (1.7-12.7); NRBC # 0.12 10*3/uL; Neutrophils % 83.9 % (38.7-73.9); Platelet Count 539 T/CUMM (130-400); Red Blood Count 2.59 MC/CUMM (3.8-5.5); Red Cell Distribution Width 17.3 % (9.3-17.3); White Blood Count 26.6 T/CUMM (4-12)
[2019-10-12 03:50] LABS: ABG Base Excess -1.8 MMOL/L (-2.5-2.5); ABG HCO3 22.9 MMOL/L (20-26); ABG Oxygen Saturation 96.9 % (95-100); ABG PO2 91.8 MM HG (80-95); ABG TCO2 23.6 MMOL/L (23-27); Allen Test Positive; Pt O2 Delivery Device Ventilator
[2019-10-12 03:58] LABS: Calcium 9.2 MG/DL (8.5-10.1); Osmolality,Calculated 334.4 MOS/KG (273-304)
[2019-10-12 05:24] LABS: Band Neutrophils 2 % (0-10); Eosinophils 3 % (0-10); Hypochromasia 1+; Lymphocytes 7 % (20-55); Nucleated Red Blood Cells 1 (0-5); Segmented Neutrophils 85 % (50-85); Total Cells Counted 100
[2019-10-12 05:25] LABS: Microcytosis 1+
[2019-10-12 05:26] LABS: Polychromasia Slight
[2019-10-12] MEDS: fentaNYL INJ 2,500 MCG in SODIUM CHLORIDE 0.9% 75 ML IV PRN (06:14)
[2019-10-12] MEDS: ROSUVASTATIN 20 MG TABLET PO SCH (09:15)
[2019-10-12] MEDS: METOPROLOL TARTRATE 100 MG TABLET PO SCH ×2 (09:15→21:06)
[2019-10-12] MEDS: POLYETHYLENE GLYCOL POWDER 17 GM PACK PO SCH (09:16)
[2019-10-12] MEDS: amLODIPine 10 MG TABLET PO SCH (09:16)
[2019-10-12] MEDS: HEPARIN 5,000 UNIT/1 ML VIAL SUBCUT SCH ×2 (09:16→21:06)
[2019-10-12] MEDS: DESITIN 4OZ/NYSTATIN 15 GRAM MIXTURE PASTE TOP SCH ×2 (09:17→21:06)
[2019-10-12] MEDS: PANTOPRAZOLE 40 MG VIAL IV SCH (09:17)
[2019-10-12] MEDS ORDERED: DIGOXIN 0.5 MG/2 ML AMP IV ONE (12:10)
[2019-10-12] MEDS: MULTIVITAMIN LIQUID (CENTRUM) 60 ML BOTTLE PO SCH (12:14)
[2019-10-12] MEDS: Liraglutide [Victoza 3-Pak] 1.8 MG SUBCUT SCH (21:06)
[2019-10-12] MEDS: INSULIN GLARGINE 100 UNIT/ML SUBCUT SCH (21:06)
[2019-10-13] MEDS: INSULIN REGULAR 100 UNIT/ML SUBCUT SCH ×4 (01:45→17:36)
[2019-10-13] MEDS: methylPREDNISolone SOD SUC 40 MG/1 ML VIAL IV SCH ×2 (01:46→14:24)
[2019-10-13] MEDS: fentaNYL INJ 2,500 MCG in SODIUM CHLORIDE 0.9% 75 ML IV PRN (02:55)
[2019-10-13] MEDS: FUROSEMIDE 100 MG/10 ML VIAL IV SCH ×3 (04:31→21:12)
[2019-10-13 04:45] LABS: ABG Base Excess -1.2 MMOL/L (-2.5-2.5); ABG HCO3 23.4 MMOL/L (20-26); ABG Oxygen Saturation 97.5 % (95-100); ABG PCO2 54.5 MM HG (35-48); ABG PH 7.283 (7.35-7.45); ABG TCO2 24.6 MMOL/L (23-27); Allen Test Positive; Pt O2 Delivery Device Ventilator
[2019-10-13 05:20] LABS: Basophils # 0.1 10*3/uL (0.0-0.2); Basophils % 0.3 % (0.0-0.8); Eosinophils # 0.8 10*3/uL (0.0-0.87); Eosinophils % 3.3 % (0.00-10.9); Hematocrit 23.1 VOL% (35.7-47.0); Hemoglobin 7.1 GM/DL (12.0-16.0); Immature Granulocytes Absolute 0.95 #; Lymphocytes # 1.2 10*3/uL (1.4-4.0); Lymphocytes % 5.1 % (21.3-54.2); Mean Corpuscular HGB Conc 30.7 GM/DL (32-36); Mean Corpuscular Volume 93.9 FL (87-102); Mean Platelet Volume 10.9 FL (9.6-12.0); Monocytes % 3.9 % (1.7-12.7); NRBC # 0.13 10*3/uL; Neutrophils % 83.4 % (38.7-73.9); Platelet Count 553 T/CUMM (130-400); Red Blood Count 2.46 MC/CUMM (3.8-5.5); Red Cell Distribution Width 17.2 % (9.3-17.3); White Blood Count 23.6 T/CUMM (4-12)
[2019-10-13 05:38] LABS: Calcium 9.1 MG/DL (8.5-10.1); Osmolality,Calculated 348.4 MOS/KG (273-304)
[2019-10-13 07:44] LABS: Eosinophils 6 % (0-10); Hypochromasia Slight; Lymphocytes 5 % (20-55); Nucleated Red Blood Cells 1 (0-5); Platelet Estimate Increased; Segmented Neutrophils 87 % (50-85); Total Cells Counted 100
[2019-10-13 07:45] LABS: Microcytosis 1+; Polychromasia Few; Stomatocytes Few; Target Cells Few
[2019-10-13] MEDS: amLODIPine 10 MG TABLET PO SCH (08:20)
[2019-10-13] MEDS: MULTIVITAMIN LIQUID (CENTRUM) 60 ML BOTTLE PO SCH (08:20)
[2019-10-13] MEDS: PANTOPRAZOLE 40 MG VIAL IV SCH (08:20)
[2019-10-13] MEDS: ROSUVASTATIN 20 MG TABLET PO SCH (08:20)
[2019-10-13] MEDS: POLYETHYLENE GLYCOL POWDER 17 GM PACK PO SCH (08:20)
[2019-10-13] MEDS: METOPROLOL TARTRATE 100 MG TABLET PO SCH ×2 (08:20→21:12)
[2019-10-13] MEDS: DESITIN 4OZ/NYSTATIN 15 GRAM MIXTURE PASTE TOP SCH ×2 (08:21→21:12)
[2019-10-13] MEDS: HEPARIN 5,000 UNIT/1 ML VIAL SUBCUT SCH ×2 (09:24→21:12)
[2019-10-13] MEDS: DIGOXIN 0.125 MG TABLET PO SCH (12:23)
[2019-10-13] MEDS: INSULIN GLARGINE 100 UNIT/ML SUBCUT SCH (21:12)
[2019-10-13] MEDS: Liraglutide [Victoza 3-Pak] 1.8 MG SUBCUT SCH (22:34)
[2019-10-14] MEDS: INSULIN REGULAR 100 UNIT/ML SUBCUT SCH ×4 (00:30→17:33)
[2019-10-14] MEDS: methylPREDNISolone SOD SUC 40 MG/1 ML VIAL IV SCH ×2 (01:02→13:10)
[2019-10-14] MEDS: fentaNYL INJ 2,500 MCG in SODIUM CHLORIDE 0.9% 75 ML IV PRN (02:24)
[2019-10-14] MEDS: FUROSEMIDE 100 MG/10 ML VIAL IV SCH ×3 (04:38→20:11)
[2019-10-14] MEDS: ROSUVASTATIN 20 MG TABLET PO SCH (09:16)
[2019-10-14] MEDS: POLYETHYLENE GLYCOL POWDER 17 GM PACK PO SCH (09:16)
[2019-10-14] MEDS: MULTIVITAMIN LIQUID (CENTRUM) 60 ML BOTTLE PO SCH (09:16)
[2019-10-14] MEDS: PANTOPRAZOLE 40 MG VIAL IV SCH (09:16)
[2019-10-14] MEDS: METOPROLOL TARTRATE 100 MG TABLET PO SCH ×2 (09:17→20:11)
[2019-10-14] MEDS: amLODIPine 10 MG TABLET PO SCH (09:17)
[2019-10-14] MEDS: DESITIN 4OZ/NYSTATIN 15 GRAM MIXTURE PASTE TOP SCH ×2 (09:17→20:11)
[2019-10-14] MEDS: HEPARIN 5,000 UNIT/1 ML VIAL SUBCUT SCH ×2 (09:25→21:19)
[2019-10-14 10:03] LABS: Basophils # 0.1 10*3/uL (0.0-0.2); Basophils % 0.3 % (0.0-0.8); Eosinophils # 1.1 10*3/uL (0.0-0.87); Eosinophils % 3.5 % (0.00-10.9); Hematocrit 26.5 VOL% (35.7-47.0); Immature Granulocytes % 3.1 %; Immature Granulocytes Absolute 0.94 #; Lymphocytes # 1.7 10*3/uL (1.4-4.0); Lymphocytes % 5.6 % (21.3-54.2); Mean Corpuscular HGB Conc 30.2 GM/DL (32-36); Mean Platelet Volume 10.6 FL (9.6-12.0); Monocytes % 5.6 % (1.7-12.7); NRBC # 0.15 10*3/uL; Neutrophils % 81.9 % (38.7-73.9); Platelet Count 646 T/CUMM (130-400); Red Blood Count 2.82 MC/CUMM (3.8-5.5); Red Cell Distribution Width 17.2 % (9.3-17.3); White Blood Count 30.1 T/CUMM (4-12)
[2019-10-14 10:15] LABS: Calcium 9.6 MG/DL (8.5-10.1); Osmolality,Calculated 360.3 MOS/KG (273-304)
[2019-10-14 10:30] LABS: Anisocytosis 2+; Band Neutrophils 3 % (0-10); Basophilic Stippling 1+; Eosinophils 3 % (0-10); Hypochromasia 1+; Lymphocytes 7 % (20-55); Macrocytosis 1+; Platelet Estimate Increased; Segmented Neutrophils 77 % (50-85); Smudge Cells Few; Total Cells Counted 100
[2019-10-14 10:31] LABS: Giant Platelets Few
[2019-10-14] MEDS: DIGOXIN 0.125 MG TABLET PO SCH (12:35)
[2019-10-14] MEDS: Liraglutide [Victoza 3-Pak] 1.8 MG SUBCUT SCH (20:11)
[2019-10-14] MEDS: INSULIN GLARGINE 100 UNIT/ML SUBCUT SCH (20:11)
[2019-10-15] MEDS: INSULIN REGULAR 100 UNIT/ML SUBCUT SCH ×5 (00:29→23:57)
[2019-10-15] MEDS: methylPREDNISolone SOD SUC 40 MG/1 ML VIAL IV SCH ×2 (01:22→15:38)
[2019-10-15] MEDS: FUROSEMIDE 100 MG/10 ML VIAL IV SCH ×3 (03:03→20:50)
[2019-10-15 04:30] LABS: ABG Base Excess 0.2 MMOL/L (-2.5-2.5); ABG HCO3 24.5 MMOL/L (20-26); ABG Oxygen Saturation 91.4 % (95-100); ABG PCO2 67.6 MM HG (35-48); ABG PH 7.236 (7.35-7.45); ABG PO2 69.4 MM HG (80-95); ABG TCO2 27.3 MMOL/L (23-27); Allen Test Positive; Pt O2 Delivery Device Ventilator
[2019-10-15 05:37] LABS: Basophils # 0.1 10*3/uL (0.0-0.2); Basophils % 0.4 % (0.0-0.8); Eosinophils # 1.6 10*3/uL (0.0-0.87); Eosinophils % 5.7 % (0.00-10.9); Hematocrit 25.6 VOL% (35.7-47.0); Hemoglobin 7.8 GM/DL (12.0-16.0); Immature Granulocytes % 2.5 %; Immature Granulocytes Absolute 0.69 #; Lymphocytes # 1.4 10*3/uL (1.4-4.0); Lymphocytes % 5.1 % (21.3-54.2); Mean Corpuscular HGB Conc 30.5 GM/DL (32-36); Mean Corpuscular Volume 93.8 FL (87-102); Mean Platelet Volume 10.7 FL (9.6-12.0); Monocytes % 5.9 % (1.7-12.7); Neutrophils % 80.4 % (38.7-73.9); Platelet Count 646 T/CUMM (130-400); Red Blood Count 2.73 MC/CUMM (3.8-5.5); Red Cell Distribution Width 17.2 % (9.3-17.3); White Blood Count 27.3 T/CUMM (4-12)
[2019-10-15 05:48] LABS: Calcium 9.4 MG/DL (8.5-10.1); Osmolality,Calculated 370.7 MOS/KG (273-304)
[2019-10-15 06:03] LABS: Band Neutrophils 1 % (0-10); Eosinophils 4 % (0-10); Hypochromasia 1+; Lymphocytes 2 % (20-55); Microcytosis 1+; Nucleated Red Blood Cells 1 (0-5); Segmented Neutrophils 88 % (50-85); Total Cells Counted 100
[2019-10-15 06:04] LABS: Platelet Estimate Increased; Polychromasia Slight
[2019-10-15] MEDS: MULTIVITAMIN LIQUID (CENTRUM) 60 ML BOTTLE PO SCH (08:04)
[2019-10-15] MEDS: amLODIPine 10 MG TABLET PO SCH (08:04)
[2019-10-15] MEDS: ERGOCALCIFEROL 50,000 UNIT CAPSULE PO SCH (08:04)
[2019-10-15] MEDS: ROSUVASTATIN 20 MG TABLET PO SCH (08:04)
[2019-10-15] MEDS: METOPROLOL TARTRATE 100 MG TABLET PO SCH ×2 (08:04→20:51)
[2019-10-15] MEDS: PANTOPRAZOLE 40 MG VIAL IV SCH (08:05)
[2019-10-15] MEDS: POLYETHYLENE GLYCOL POWDER 17 GM PACK PO SCH (08:07)
[2019-10-15] MEDS: DESITIN 4OZ/NYSTATIN 15 GRAM MIXTURE PASTE TOP SCH ×2 (08:13→20:51)
[2019-10-15] MEDS: HEPARIN 5,000 UNIT/1 ML VIAL SUBCUT SCH ×2 (09:35→21:13)
[2019-10-15] MEDS: DIGOXIN 0.125 MG TABLET PO SCH (12:55)
[2019-10-15] MEDS ORDERED: DIGOXIN 0.5 MG/2 ML AMP IV ONE (17:33)
[2019-10-15] MEDS: INSULIN GLARGINE 100 UNIT/ML SUBCUT SCH (20:50)
[2019-10-15] MEDS: Liraglutide [Victoza 3-Pak] 1.8 MG SUBCUT SCH (20:51)
[2019-10-15] MEDS ORDERED: MORPHINE 4 MG/1 ML VIAL IV PRN (22:17)
[2019-10-15] MEDS ORDERED: METOPROLOL TARTRATE 5 MG/5 ML VIAL IV ONE (22:30)
[2019-10-16] MEDS: METOPROLOL TARTRATE 5 MG/5 ML VIAL IV PRN (00:57)
[2019-10-16] MEDS: fentaNYL INJ 2,500 MCG in SODIUM CHLORIDE 0.9% 75 ML IV PRN ×2 (01:10→10:30)
[2019-10-16] MEDS: methylPREDNISolone SOD SUC 40 MG/1 ML VIAL IV SCH ×2 (02:25→15:28)
[2019-10-16 04:22] LABS: ABG HCO3 27.7 MMOL/L (20-26); ABG Oxygen Saturation 95.4 % (95-100); ABG PCO2 64.8 MM HG (35-48); ABG PH 7.248 (7.35-7.45); ABG PO2 89.7 MM HG (80-95); ABG TCO2 29.6 MMOL/L (23-27); Allen Test Positive; Pt O2 Delivery Device Ventilator
[2019-10-16] MEDS: FUROSEMIDE 100 MG/10 ML VIAL IV SCH ×3 (04:55→21:12)
[2019-10-16 05:13] LABS: Basophils # 0.1 10*3/uL (0.0-0.2); Basophils % 0.5 % (0.0-0.8); Eosinophils # 0.5 10*3/uL (0.0-0.87); Eosinophils % 2.3 % (0.00-10.9); Hematocrit 24.1 VOL% (35.7-47.0); Hemoglobin 7.2 GM/DL (12.0-16.0); Immature Granulocytes % 2.8 %; Immature Granulocytes Absolute 0.62 #; Lymphocytes # 1.3 10*3/uL (1.4-4.0); Lymphocytes % 5.7 % (21.3-54.2); Mean Corpuscular HGB Conc 29.9 GM/DL (32-36); Monocytes % 3.4 % (1.7-12.7); NRBC # 0.21 10*3/uL; Neutrophils % 85.3 % (38.7-73.9); Platelet Count 557 T/CUMM (130-400); Red Blood Count 2.51 MC/CUMM (3.8-5.5); Red Cell Distribution Width 16.9 % (9.3-17.3)
[2019-10-16 05:38] LABS: Eosinophils 2 % (0-10); Lymphocytes 5 % (20-55); Nucleated Red Blood Cells 1 (0-5); Platelet Estimate Adequate; Segmented Neutrophils 91 % (50-85); Total Cells Counted 100
[2019-10-16 05:39] LABS: Hypochromasia 2+; Microcytosis 1+; Ovalocytes Slight
[2019-10-16 05:40] LABS: Calcium 9.2 MG/DL (8.5-10.1); Osmolality,Calculated 383.8 MOS/KG (273-304)
[2019-10-16] MEDS: INSULIN REGULAR 100 UNIT/ML SUBCUT SCH ×3 (07:24→17:34)
[2019-10-16] MEDS: ROSUVASTATIN 20 MG TABLET PO SCH (08:28)
[2019-10-16] MEDS: PANTOPRAZOLE 40 MG VIAL IV SCH (08:28)
[2019-10-16] MEDS: POLYETHYLENE GLYCOL POWDER 17 GM PACK PO SCH (08:29)
[2019-10-16] MEDS: MULTIVITAMIN LIQUID (CENTRUM) 60 ML BOTTLE PO SCH (08:30)
[2019-10-16] MEDS: DESITIN 4OZ/NYSTATIN 15 GRAM MIXTURE PASTE TOP SCH ×2 (08:31→21:13)
[2019-10-16] MEDS: METOPROLOL TARTRATE 100 MG TABLET PO SCH ×3 (08:31→21:13)
[2019-10-16] MEDS: amLODIPine 10 MG TABLET PO SCH (08:31)
[2019-10-16] MEDS: HEPARIN 5,000 UNIT/1 ML VIAL SUBCUT SCH ×2 (09:45→21:13)
[2019-10-16] MEDS: DIGOXIN 0.25 MG TABLET PO SCH (15:38)
[2019-10-16] MEDS ORDERED: HEPARIN 10,000 UNIT/10 ML VIAL IV SCH (16:15)
[2019-10-16] MEDS: Liraglutide [Victoza 3-Pak] 1.8 MG SUBCUT SCH (21:13)
[2019-10-16] MEDS: INSULIN GLARGINE 100 UNIT/ML SUBCUT SCH (21:13)
[2019-10-17] MEDS: INSULIN REGULAR 100 UNIT/ML SUBCUT SCH ×4 (00:10→17:48)
[2019-10-17] MEDS: methylPREDNISolone SOD SUC 40 MG/1 ML VIAL IV SCH ×3 (01:59→17:50)
[2019-10-17] MEDS: fentaNYL INJ 2,500 MCG in SODIUM CHLORIDE 0.9% 75 ML IV PRN ×4 (02:59→23:30)
[2019-10-17] MEDS: FUROSEMIDE 100 MG/10 ML VIAL IV SCH ×3 (04:53→20:33)
[2019-10-17 05:31] LABS: ABG Base Excess -2.2 MMOL/L (-2.5-2.5); ABG HCO3 22.4 MMOL/L (20-26); ABG Oxygen Saturation 83.1 % (95-100); ABG PO2 57.1 MM HG (80-95); ABG TCO2 25.9 MMOL/L (23-27)
[2019-10-17 05:33] LABS: ABG PCO2 69.4 MM HG (35-48); ABG PH 7.192 (7.35-7.45)
[2019-10-17 05:52] LABS: Basophils # 0.1 10*3/uL (0.0-0.2); Basophils % 0.3 % (0.0-0.8); Eosinophils # 0.7 10*3/uL (0.0-0.87); Hematocrit 22.1 VOL% (35.7-47.0); Hemoglobin 6.6 GM/DL (12.0-16.0); Immature Granulocytes % 2.3 %; Immature Granulocytes Absolute 0.53 #; Lymphocytes # 1.5 10*3/uL (1.4-4.0); Lymphocytes % 6.5 % (21.3-54.2); Mean Corpuscular HGB Conc 29.9 GM/DL (32-36); Mean Corpuscular Volume 95.7 FL (87-102); Monocytes % 2.8 % (1.7-12.7); NRBC # 0.21 10*3/uL; Neutrophils % 85.1 % (38.7-73.9); Platelet Count 468 T/CUMM (130-400); Red Blood Count 2.31 MC/CUMM (3.8-5.5); Red Cell Distribution Width 16.7 % (9.3-17.3); White Blood Count 23.3 T/CUMM (4-12)
[2019-10-17 06:18] LABS: Eosinophils 5 % (0-10); Hypochromasia 1+; Lymphocytes 8 % (20-55); Microcytosis Slight; Nucleated Red Blood Cells 1 (0-5); Platelet Estimate Adequate; Segmented Neutrophils 81 % (50-85); Total Cells Counted 100
[2019-10-17] MEDS: PANTOPRAZOLE 40 MG VIAL IV SCH (08:57)
[2019-10-17] MEDS: MULTIVITAMIN LIQUID (CENTRUM) 60 ML BOTTLE PO SCH (08:57)
[2019-10-17] MEDS: ROSUVASTATIN 20 MG TABLET PO SCH (08:58)
[2019-10-17] MEDS: POLYETHYLENE GLYCOL POWDER 17 GM PACK PO SCH (08:58)
[2019-10-17] MEDS: METOPROLOL TARTRATE 100 MG TABLET PO SCH ×2 (08:58→20:33)
[2019-10-17] MEDS: HEPARIN 5,000 UNIT/1 ML VIAL SUBCUT SCH ×2 (09:01→21:35)
[2019-10-17] MEDS: DESITIN 4OZ/NYSTATIN 15 GRAM MIXTURE PASTE TOP SCH ×2 (09:01→20:33)
[2019-10-17] MEDS: DIGOXIN 0.25 MG TABLET PO SCH (12:21)
[2019-10-17] MEDS ORDERED: SODIUM CHLORIDE 0.9% 1,000 ML IV PRN (16:46)
[2019-10-17] MEDS: INSULIN GLARGINE 100 UNIT/ML SUBCUT SCH (20:33)
[2019-10-17] MEDS: Liraglutide [Victoza 3-Pak] 1.8 MG SUBCUT SCH (20:34)
[2019-10-17 21:12] LABS: Calcium 8.8 MG/DL (8.5-10.1); Osmolality,Calculated 389.4 MOS/KG (273-304)
[2019-10-17 22:08] VITALS: BP 111/54
[2019-10-18] MEDS: INSULIN REGULAR 100 UNIT/ML SUBCUT SCH ×2 (00:30→06:17)
[2019-10-18] MEDS: ACETAMINOPHEN 325 MG TABLET PO PRN (00:34)
[2019-10-18 01:13] LABS: Hematocrit 26.5 VOL% (35.7-47.0); Hemoglobin 7.9 GM/DL (12.0-16.0)
[2019-10-18] MEDS: FUROSEMIDE 100 MG/10 ML VIAL IV SCH (02:32)
[2019-10-18] MEDS ORDERED: PHENYLEPHRINE DRIP 40 MG/250 ML PREMIX IV PRN (02:40)
[2019-10-18] MEDS: METOPROLOL TARTRATE 5 MG/5 ML VIAL IV PRN (02:55)
[2019-10-18 04:36] LABS: ABG Base Excess -6.3 MMOL/L (-2.5-2.5); ABG HCO3 19.2 MMOL/L (20-26); ABG Oxygen Saturation 93.1 % (95-100); ABG PO2 81.8 MM HG (80-95); ABG TCO2 24.3 MMOL/L (23-27)
[2019-10-18 04:40] LABS: ABG PCO2 82.4 MM HG (35-48)
[2019-10-18 05:06] LABS: Basophils # 0.1 10*3/uL (0.0-0.2); Basophils % 0.3 % (0.0-0.8); Eosinophils # 1.1 10*3/uL (0.0-0.87); Hematocrit 26.1 VOL% (35.7-47.0); Hemoglobin 7.8 GM/DL (12.0-16.0); Immature Granulocytes % 3.1 %; Immature Granulocytes Absolute 0.86 #; Lymphocytes # 2.1 10*3/uL (1.4-4.0); Lymphocytes % 7.8 % (21.3-54.2); Mean Corpuscular HGB Conc 29.9 GM/DL (32-36); Mean Corpuscular Volume 96.3 FL (87-102); Mean Platelet Volume 11.3 FL (9.6-12.0); Monocytes % 5.8 % (1.7-12.7); NRBC # 0.46 10*3/uL; Platelet Count 516 T/CUMM (130-400); Red Blood Count 2.71 MC/CUMM (3.8-5.5); White Blood Count 27.6 T/CUMM (4-12)
[2019-10-18 05:32] LABS: Calcium 8.7 MG/DL (8.5-10.1); Osmolality,Calculated 389.7 MOS/KG (273-304)
[2019-10-18 05:38] LABS: Band Neutrophils 2 % (0-10); Eosinophils 7 % (0-10); Hypochromasia 1+; Lymphocytes 11 % (20-55); Microcytosis Slight; Nucleated Red Blood Cells 1 (0-5); Platelet Estimate Increased; Segmented Neutrophils 72 % (50-85); Total Cells Counted 100
[2019-10-18] MEDS: methylPREDNISolone SOD SUC 40 MG/1 ML VIAL IV SCH (06:17)
[2019-10-18] MEDS ORDERED: ROCURONIUM 1,000 MG in SODIUM CHLORIDE 0.9% 175 ML IV PRN (08:40)
[2019-10-18] MEDS: POLYETHYLENE GLYCOL POWDER 17 GM PACK PO SCH (08:59)
[2019-10-18] MEDS: ROSUVASTATIN 20 MG TABLET PO SCH (08:59)
[2019-10-18] MEDS: HEPARIN 5,000 UNIT/1 ML VIAL SUBCUT SCH (09:00)
[2019-10-18] MEDS: METOPROLOL TARTRATE 100 MG TABLET PO SCH (09:00)
[2019-10-18] MEDS: DESITIN 4OZ/NYSTATIN 15 GRAM MIXTURE PASTE TOP SCH (09:00)
[2019-10-18] MEDS: PANTOPRAZOLE 40 MG VIAL IV SCH (09:00)
[2019-10-18] MEDS: fentaNYL INJ 2,500 MCG in SODIUM CHLORIDE 0.9% 75 ML IV PRN (09:23)
[2019-10-18] MEDS ORDERED: FLUCONAZOLE INJ 100 MG in IV BAG 1 EACH IV SCH (09:30)
[2019-10-18] MEDS: MULTIVITAMIN LIQUID (CENTRUM) 60 ML BOTTLE PO SCH (10:39)
== END 2019-10-18 11:11 | disposition expired | DRG 870 ==
LOC: EDUNIT# → EDBD → N.ED 19:48 → SUATTDRO 09-27 00:26 → N.EDINP 09-27 00:26 → N.CC 09-27 01:26 → N.2E 09-27 15:32 → N.ICU 09-28 12:47 → N.CC 09-29 13:07
PROVIDERS: ADMIT Internal Medicine; ATTEND Internal Medicine